=== PATIENT | male | born 1980 | race African-American/Black ===

== ENCOUNTER 2016-03-25 09:38 | Emergency (ER) | payer BC ==
[2016-03-25] MEDS ORDERED: Ketorolac INJ* 60 MG/2 ML VIAL IM ONE (11:24)
[2016-03-25 11:37] VITALS: BP 154/82
--- NOTE | 2016-03-25 14:31 | UC ---
Ariel Edwards Billy, scribed for Amanda Nava DO on 03/25/16 at 1107 . Lower Extremity/Ankle HPI - HPI Summary HPI Summary: Patient is a 35 year-old male coming [place] [facility] [place] LLE cramping for several weeks. He describes an ache, pain severity 9/10. He states that it is worse with bending, ambulating. Pain is improved with ibuprofen. He states that the pain has progressively gotten worse and ibuprofen no longer helps. The pain begins in the inner thigh and radiates through the back of his leg, through his calf, to his ankle. Patient states that he has mild lower back pain. He states that there is weakness in the LLE as well as tingling behind the knee. He denies any loss of bowel/bladder control. He denies any other complaints at this time. He reports occasional heavy lifting at work. - History of Current Complaint Chief Complaint: UCLowerExtremity Stated Complaint: LEG COMPLAINT Time Seen by Provider: 03/25/16 10:49 Hx Obtained From: Patient Onset/Duration: Gradual Onset, Lasting Weeks, Still Present Severity Initially: Moderate Severity Currently: Moderate Pain Intensity: 9 Pain Scale Used: 0-10 Numeric Aggravating Factor(s): Ambulation, Other - bending, moving Alleviating Factor(s): Other - Ibuprofen used to improve his pain, but not anymore. Able to Bear Weight: Yes - Allergies/Home Medications Allergies/Adverse Reactions: Allergies Allergy/AdvReac Type Severity Reaction Status Date / Time No Known Allergies Allergy Verified 12/25/15 12:15 PMH/Surg Hx/FS Hx/Imm Hx Endocrine History Of: Denies: Diabetes, Thyroid Disease, Hyperthyroidism, Hypothyroidism, Dyslipidemia Cardiovascular History Of: Reports: Hypertension Denies: Cardiac Disorders, Pacemaker/ICD, Myocardial Infarction, Congestive Heart Failure, Atrial Fibrillation, Deep Vein Thrombosis, Bleeding Disorders Respiratory History Of: Reports: Asthma, Bronchitis Denies: COPD GI/ History Of: Reports: Gastroesophageal Reflux Denies: Ulcer, Gastrointestinal Bleed, Gall Bladder Disease, Kidney Stones, Diverticulitis, Renal Disease, Urosepsis Neurological History Of: Denies: TIA, CVA, Dementia, Seizures, Migraine Psychological History Of: Reports: Depression Denies: Anxiety, Bipolar Disorder, Schizophrenia, Post Traumatic Stress Disorder Cancer History Of: Denies: Lung Cancer, Colorectal Cancer, Breast Cancer, Prostate Cancer, Cervical Cancer Other History Of: Negative For: HIV, Hepatitis B, Hepatitis C - Surgical History Surgical History: None - Family History Known Family History: Positive: Cardiac Disease, Hypertension, Diabetes, Respiratory Disease - COPD, Other - CVA - Social History Occupation: Employed Full-time - food industry Lives: With Family Alcohol Use: Occasionally Substance Use Type: None Smoking Status (MU): Light Every Day Tobacco Smoker Type: Cigarettes Amount Used/How Often: 1/2 PACK EVERY COUPLE DAYS Length of Time of Smoking/Using Tobacco: since age 16 Have You Smoked in the Last Year: Yes Household Exposure Type: Cigarettes - Immunization History Most Recent Influenza Vaccination: Review of Systems Constitutional: Negative Skin: Negative Eyes: Negative ENT: Negative Respiratory: Negative Cardiovascular: Negative Gastrointestinal: Negative Genitourinary: Other - pt repost some difficulty starting stream for several months now. Motor: Negative Neurovascular: Negative Musculoskeletal: Other: - LLE cramping, back pain Neurological: Weakness, Paresthesia - Behind left knee., Other - no bowel or bladder changes, no saddle anesthesia Psychological: Negative All Other Systems Reviewed And Are Negative: Yes Physical Exam Triage Information Reviewed: Yes Appearance: Well-Appearing, No Pain Distress, Well-Nourished Vital Signs: Initial Vital Signs Temp 97.9 F 03/25/16 10:37 Pulse 80 03/25/16 10:37 Resp 16 03/25/16 10:37 BP 143/104 03/25/16 10:37 Pulse Ox 79 03/25/16 10:37 Vital Signs Reviewed: Yes Eyes: Positive: Conjunctiva Clear. Negative: Discharge ENT: Positive: Hearing grossly normal. Negative: Muffled/hoarse voice Neck: Positive: Supple, Nontender Respiratory: Positive: Lungs clear, Normal breath sounds, No respiratory distress, No accessory muscle use Cardiovascular: Positive: RRR, No Murmur Abdomen Description: Positive: Nontender, Soft. Negative: Distended, Guarding Musculoskeletal: Positive: No Edema, Other: - ROM restricted due to pain. Left side bending, right rotation, and extention: all of those motions aggravate pain in the left leg. No edema or calf tenderness. Some weakness due to pain in the LLE. Tender Psoas/Piriformis muscles. Positive straight leg raise. Neurological: Positive: Alert, Muscle Tone Normal, Other: - Sensation and reflexes intact and symmetrical bilaterally. Psychological: Positive: Age Appropriate Behavior Skin Exam: Normal Lower Extremity Course/Dx - Differential Dx/Diagnosis Differential Diagnosis/HQI/PQRI: Sciatica, Sprain, Strain Provider Diagnoses: sciatica Discharge - Discharge Plan Condition: Stable Disposition: HOME Prescriptions: HYDROcodone/ACETAMIN 5-325 MG* [[place] 5-325 TAB*] 1 tab PO Q6H PRN #14 tab MDD 4 TABS PRN Reason: Pain predniSONE TAB* [Deltasone TAB*] 40 mg PO DAILY #10 tab Patient Education Materials: Sciatica (ED) Forms: *Work Release Referrals: Durga Terry MD [Medical Doctor] - Additional Instructions: PHYSICAL THERAPY REFERRAL: You have been prescribed physical therapy. Treatments may include stretching, exercise, application of heat or cold, and other modalities. After an injury, PT can reduce swelling and pain. In recovery, PT is used to restore mobility and strength. Your specific treatment goals are: Reduction of Swelling (EGS, US, ice as needed) __x___ Pain Reduction (EGS, US, ice as needed) TENS Pack Fitting and Instruction Wound Hydrotherapy __x___ Preservation of Mobility Gnosticism of Mobility Strength Gnosticism __x___ Work or Sports Hardening This instruction sheet also serves as your PHYSICAL THERAPY REFERRAL! Please take it with you to the therapist, so he/she will be aware of your diagnosis and treatment plan. You may see the physical therapist of your choice for these treatments, but may wish to check with your insurance to be sure the provider you select is covered. It's important to see the doctor to whom you have been referred for follow up. YOU WOULD LIKELY BENEFIT FROM OSTEOPATHIC TREATMENT. WE RECOMMEND THAT YOU FIND AN OSTEOPATHIC PHYSICIAN IN YOUR AREA WHO FOCUSES EXCLUSIVELY ON OSTEOPATHIC MANIPULATIVE MEDICINE WITH EXPERTISE IN MYOFACIAL, LYMPHATIC, VISCERAL AND INTEROSSEOUS WORK The documentation as recorded by the Ariel allison Billy accurately reflects the service I personally performed and the decisions made by me, Amanda Nava DO.
== END 2016-03-25 12:16 | disposition home or self-care (01) ==
LOC: UCEAST 09:38
DX: M54.42 Lumbago with sciatica, left side (principal); F17.210 Nicotine dependence, cigarettes, uncomplicated
CPT/HCPCS: 96372; 99212; G0463; J1885

== ENCOUNTER 2016-05-13 09:51 | Emergency (ER) | payer BC ==
[2016-05-13] MEDS ORDERED: Ketorolac INJ* 60 MG/2 ML VIAL IM ONE (11:09)
[2016-05-13 11:55] VITALS: BP 150/109
--- NOTE | 2016-05-13 11:57 | RAD ---
INDICATION: Right shoulder pain COMPARISON: None TECHNIQUE: Routine frontal and Y views were obtained. FINDINGS: There is minor AC joint osteoarthritis. The glenohumeral joint is intact. The soft tissues are normal. IMPRESSION: MINOR AC JOINT OSTEOARTHRITIS
--- NOTE | 2016-05-13 11:58 | RAD ---
Indication: 2 days RIGHT shoulder/chest pain and limited mobility of the RIGHT arm. Comparison: None. Technique: AP, open-mouth odontoid, lateral, and oblique views cervical spine. Report: Slight RIGHT convex curve. Negative for facet subluxation at any level. Negative for fracture. Preserved disc spaces. The oblique views are negative for osseous foraminal stenosis. Unremarkable prevertebral soft tissue contours. IMPRESSION: Negative exam.
--- NOTE | 2016-05-13 12:57 | UC ---
Shoulder Pain HPI - HPI Summary HPI Summary: TWO DAYS OF RIGHT SHOULDER PAIN WITHOUT KNOWN INJURY. WORKS A COOK. RIGHT NECK ALSO FEELS STIFF - History of Current Complaint Chief Complaint: UCUpperExtremity Stated Complaint: ARM/SHOULDER PAIN Time Seen by Provider: 05/13/16 10:56 Hx Obtained From: Patient Onset/Duration: Gradual Onset, Lasting Days, Still Present, Worse Since - TODAY Timing: Days Severity Initially: Mild Severity Currently: Moderate Location Of Pain: Is Discrete @ - RIGHT SHOULDER BLADE AND RIGHT NECK Pain Intensity: 0 Pain Scale Used: 0-10 Numeric Character: Spasmodic Aggravating Factor(s): Movement, Lifting, Extension, External Rotation Associated Signs And Symptoms: Positive: Negative Related History: Dominant Hand Left - Risk Factors Non-Orthopedic Risk Factor: Negative DVT Risk Factors: Negative Septic Arthritis Risk Factor: Negative - Allergies/Home Medications Allergies/Adverse Reactions: Allergies Allergy/AdvReac Type Severity Reaction Status Date / Time No Known Allergies Allergy Verified 12/25/15 12:15 PMH/Surg Hx/FS Hx/Imm Hx Previously Healthy: Yes Endocrine History Of: Denies: Diabetes, Thyroid Disease, Hyperthyroidism, Hypothyroidism, Dyslipidemia Cardiovascular History Of: Reports: Hypertension Denies: Cardiac Disorders, Pacemaker/ICD, Myocardial Infarction, Congestive Heart Failure, Atrial Fibrillation, Deep Vein Thrombosis, Bleeding Disorders Respiratory History Of: Reports: Asthma, Bronchitis Denies: COPD GI/ History Of: Reports: Gastroesophageal Reflux Denies: Ulcer, Gastrointestinal Bleed, Gall Bladder Disease, Kidney Stones, Diverticulitis, Renal Disease, Urosepsis Neurological History Of: Denies: TIA, CVA, Dementia, Seizures, Migraine Psychological History Of: Reports: Depression Denies: Anxiety, Bipolar Disorder, Schizophrenia, Post Traumatic Stress Disorder Cancer History Of: Denies: Lung Cancer, Colorectal Cancer, Breast Cancer, Prostate Cancer, Cervical Cancer Other History Of: Negative For: HIV, Hepatitis B, Hepatitis C - Surgical History Surgical History: None - Family History Known Family History: Positive: Cardiac Disease, Hypertension, Diabetes, Respiratory Disease - COPD, Other - CVA - Social History Occupation: Employed Full-time Lives: With Family Alcohol Use: Occasionally Substance Use Type: None Smoking Status (MU): Light Every Day Tobacco Smoker Type: Cigarettes Amount Used/How Often: 1/2 PACK EVERY COUPLE DAYS Length of Time of Smoking/Using Tobacco: since age 16 Have You Smoked in the Last Year: Yes Household Exposure Type: Cigarettes Cessation Counseling: Patient Advised to Stop - Immunization History Most Recent Influenza Vaccination: 2015/2016 Review of Systems Constitutional: Negative Skin: Negative Eyes: Negative ENT: Negative Respiratory: Negative Cardiovascular: Negative Gastrointestinal: Negative Genitourinary: Negative Motor: Negative Neurovascular: Negative Musculoskeletal: Arthralgia, Myalgia Neurological: Negative Psychological: Negative All Other Systems Reviewed And Are Negative: Yes Physical Exam Triage Information Reviewed: Yes Appearance: Well-Appearing, Well-Nourished, Pain Distress - MILD Vital Signs: Initial Vital Signs Temp 98.1 F 05/13/16 10:44 Pulse 76 05/13/16 10:44 Resp 18 05/13/16 10:44 BP 150/101 05/13/16 10:44 Pulse Ox 100 05/13/16 10:44 Vital Signs Reviewed: Yes Eye Exam: Normal ENT Exam: Normal ENT: Positive: Normal ENT inspection, Hearing grossly normal, Pharynx normal, TMs normal Dental Exam: Normal Neck exam: Normal Neck: Positive: Supple, Nontender Respiratory Exam: Normal Respiratory: Positive: Chest non-tender, Lungs clear, Normal breath sounds, No respiratory distress, No accessory muscle use Cardiovascular Exam: Normal Cardiovascular: Positive: RRR, No Murmur, Pulses Normal, Brisk Capillary Refill Abdominal Exam: Normal Musculoskeletal: Positive: ROM Intact, Strength Limited @ - RIGHT SHOULDER Neurological Exam: Normal Psychological Exam: Normal Skin Exam: Normal Shoulder Course/Dx - Differential Dx/Diagnosis Differential Diagnosis/HQI/PQRI: Sprain, Strain Provider Diagnoses: RIGHT AC JOINT ARTHRITIS. HYPERTENSION (WILL FOLLOW UP WITH DOCTOR THIS WEEK). TORTICOLLIS Discharge - Discharge Plan Condition: Stable Disposition: HOME Prescriptions: Metaxalone TAB* [Skelaxin TAB*] 800 mg PO TID #15 tab Patient Education Materials: Osteoarthritis (ED), Muscle Spasm (ED), Shoulder Pain (ED) Forms: *Work Release Referrals: [facility] [Outside] Durga Terry MD [Primary Care Provider] - Anahi Huff MD [Medical Doctor] -
== END 2016-05-13 12:21 | disposition home or self-care (01) ==
LOC: UCEAST 09:51
DX: M19.011 Primary osteoarthritis, right shoulder (principal); I10 Essential (primary) hypertension; J45.909 Unspecified asthma, uncomplicated; K21.9 Gastro-esophageal reflux disease without esophagitis; F32.9 Major depressive disorder, single episode, unspecified; F17.210 Nicotine dependence, cigarettes, uncomplicated; M43.6 Torticollis
CPT/HCPCS: 72050; 96372; 99212; G0463; J1885

== ENCOUNTER 2016-08-05 22:02 | Emergency (ER) | payer BC ==
[2016-08-05] MEDS ORDERED: Aspirin Low Dose CHEW TAB* 81 MG PO ONE (22:54)
[2016-08-05 23:09] LABS: Hematocrit 43 % (42-52); Hemoglobin 14.1 g/dl (14.0-18.0); Mean Corpuscular HGB Conc 33 g/dl (31-36); Mean Corpuscular Hemoglobin 29 pg (27-31); Mean Corpuscular Volume 88 fL (80-94); Mean Platelet Volume 9 um3 (7.4-10.4); Red Blood Count 4.92 10^6/ul (4.0-5.4); Red Cell Distribution Width 15 % (10.5-15)
[2016-08-05 23:21] LABS: Albumin 3.8 g/dL (3.2-5.2); BUN/Creatinine Ratio 13.1 (8-20); Calcium 8.9 mg/dL (8.6-10.3); EGFR African American 131.5 (>60); EGFR Non-African American 102.3 (>60); Globulin 3.2 g/dL (2-4); Potassium 3.4 mmol/L (3.5-5.0); Total Bilirubin 0.4 mg/dL (0.2-1.0)
[2016-08-05 23:23] LABS: Troponin I 0.03 ng/mL (<0.04)
--- NOTE | 2016-08-06 00:21 | ED ---
Tara Edwards Salem, scribed for Sunil Valladares MD on 08/05/16 at 2227 . HPI Chest Pain - HPI Summary HPI Summary: Patient is a 36 y/o M who presents to the ED with intermittent left-sided CP that radiates down his left arm for the past hour. He states that these sx have been re-occurring over the past few years and he is scheduled to have a follow up with Dr. Marmolejo in August 2016. He also reports SOB. Pt states that stress aggravates pain. Pt received [facility] BILINGUAL SPEECH THERAPIST. - History of Current Complaint Chief Complaint: EDChestPainROMI Time Seen by Provider: 08/05/16 22:16 Hx Obtained From: Patient Onset/Duration: Started Hours Ago, Atraumatic, Still Present Timing: Intermittent Initial Severity: Moderate Current Severity: Moderate Pain Intensity: 9 Pain Scale Used: 0-10 Numeric Chest Pain Location: Left Anterior Chest Pain Radiates: Yes Chest Pain Radiates To:: Arm - Lt. Aggravating Factor(s): Other: - Stress. Alleviating Factor(s): Nothing Associated Signs and Symptoms: Positive: Chest Pain, Shortness of Breath - Allergy/Home Medications Allergies/Adverse Reactions: Allergies Allergy/AdvReac Type Severity Reaction Status Date / Time No Known Allergies Allergy Verified 12/25/15 12:15 PMH/Surg Hx/FS Hx/Imm Hx Endocrine/Hematology History: Denies: Hx Diabetes, Hx Thyroid Disease Cardiovascular History: Reports: Hx Hypertension Denies: Hx Congestive Heart Failure, Hx Deep Vein Thrombosis, Hx Myocardial Infarction, Hx Pacemaker/ICD Respiratory History: Reports: Hx Asthma Denies: Hx Chronic Obstructive Pulmonary Disease (COPD), Hx Lung Cancer GI History: Denies: Hx Gall Bladder Disease, Hx Gastrointestinal Bleed, Hx Ulcer, Hx Urosepsis History: Denies: Hx Kidney Stones, Hx Renal Disease Sensory History: Denies: Hx Hearing Aid Neurological History: Denies: Hx Dementia, Hx Migraine, Hx Seizures, Hx Transient Ischemic Attacks (TIA) Psychiatric History: Reports: Hx Depression Denies: Hx Anxiety, Hx Panic Disorder, Hx Schizophrenia, Hx Bipolar Disorder Infectious Disease History: No Infectious Disease History: Denies: Hx Hepatitis, Hx Human Immunodeficiency Virus (HIV), Hx of Known/ Suspected MRSA, History Other Infectious Disease, Traveled Outside the [place] in Last 30 Days - Family History Known Family History: Positive: Cardiac Disease, Hypertension, Diabetes, Respiratory Disease - COPD, Other - CVA - Social History Alcohol Use: Occasionally Hx Substance Use: No Substance Use Type: Reports: None Hx Tobacco Use: Yes Smoking Status (MU): Light Every Day Tobacco Smoker Type: Cigarettes Amount Used/How Often: 1/2 PACK EVERY COUPLE DAYS Length of Time of Smoking/Using Tobacco: since age 16 Have You Smoked in the Last Year: Yes Review of Systems Negative: Fever Positive: Chest Pain Positive: Shortness Of Breath All Other Systems Reviewed And Are Negative: Yes Physical Exam Triage Information Reviewed: Yes Vital Signs On Initial Exam: Initial Vitals Temp Pulse Resp BP Pulse Ox 98.0 F 64 16 153/102 97 08/05/16 22:10 08/05/16 22:10 08/05/16 22:10 08/05/16 22:10 08/05/16 22:10 Vital Signs Reviewed: Yes Appearance: Positive: Well-Appearing, No Pain Distress, Obese Skin: Positive: Warm, Skin Color Reflects Adequate Perfusion, Dry Head/Face: Positive: Normal Head/Face Inspection Eyes: Positive: Normal Neck: Positive: Supple, Nontender Respiratory/Lung Sounds: Positive: Clear to Auscultation, Breath Sounds Present Cardiovascular: Positive: RRR Abdomen Description: Positive: Nontender, Soft Bowel Sounds: Positive: Present Musculoskeletal: Positive: Normal Neurological: Positive: Normal Psychiatric: Positive: Normal, Affect/Mood Appropriate Diagnostics - Vital Signs Vital Signs Temp Pulse Resp BP Pulse Ox 08/05/16 22:10 98.0 F 64 16 153/102 97 - Laboratory Lab Results: Lab Results 08/05/16 08/05/16 08/05/16 Range/Units 22:30 22:30 22:30 WBC 6.0 (3.5-10.8) 10^3/ul RBC 4.92 (4.0-5.4) 10^6/ul Hgb 14.1 (14.0-18.0) g/dl Hct 43 (42-52) % MCV 88 (80-94) fL MCH 29 (27-31) pg MCHC 33 (31-36) g/dl RDW 15 (10.5-15) % Plt Count 220 (150-450) 10^3/ul MPV 9 (7.4-10.4) um3 Neut % (Auto) 37.3 L (38-83) % Lymph % (Auto) 45.7 (25-47) % [place] % (Auto) 11.8 H (1-9) % Eos % (Auto) 4.5 (0-6) % Baso % (Auto) 0.7 (0-2) % Absolute Neuts (auto) 2.2 (1.5-7.7) 10^3/ul Absolute Lymphs (auto) 2.7 (1.0-4.8) 10^3/ul Absolute Monos (auto) 0.7 (0-0.8) 10^3/ul Absolute Eos (auto) 0.3 (0-0.6) 10^3/ul Absolute Basos (auto) 0 (0-0.2) 10^3/ul Absolute Nucleated RBC 0.02 10^3/ul Nucleated RBC % 0.3 Sodium 137 (133-145) mmol/L Potassium 3.4 L (3.5-5.0) mmol/L Chloride 106 (101-111) mmol/L Carbon Dioxide 24 (22-32) mmol/L Anion Gap 7 (2-11) mmol/L BUN 11 (6-24) mg/dL Creatinine 0.84 (0.67-1.17) mg/dL Est GFR ( Amer) 131.5 (>60) Est GFR (Non-Af Amer) 102.3 (>60) BUN/Creatinine Ratio 13.1 (8-20) Glucose 103 H (70-100) mg/dL Lactic Acid 1.4 (0.5-2.0) mmol/L Calcium 8.9 (8.6-10.3) mg/dL Total Bilirubin 0.40 (0.2-1.0) mg/dL AST 31 (13-39) U/L ALT 65 H (7-52) U/L Alkaline Phosphatase 80 (34-104) U/L Troponin I 0.03 (<0.04) ng/mL Total Protein 7.0 (6.4-8.9) g/dL Albumin 3.8 (3.2-5.2) g/dL Globulin 3.2 (2-4) g/dL Albumin/Globulin Ratio 1.2 (1-3) Result Diagrams: 08/05/16 22:30 08/05/16 22:30 Diagnostic Studies Comment: Trop 1: 0.03 Lab Statement: Any lab studies that have been ordered have been reviewed, and results considered in the medical decision making process. - Radiology CXR Radiology Interpretation Completed By: ED Physician - Normal. - EKG 2210 EKG Interpretation: NSR @ 72 bpm. Inferior changes unchanged from 01/16/16. Chest Pain Course/Dx - Course Course Of Treatment: Mr. Mancera presented with CP that he has had many times before and he is scheduled to see Dr. Marmolejo for in follow up. His W/U here was negative including two troponins (the second is still pending but I anticipate it being normal). He will be D/C'd to F/U with Dr. Marmolejo. - Diagnoses Provider Diagnoses: Chest pain Discharge - Discharge Plan Condition: Stable Disposition: OTHER Discharge Disposition Comment: Sign out to Dr. Hyatt. Pending Troponin. Patient Education Materials: Chest Pain (ED) Referrals: Durga Terry MD [Primary Care Provider] - Additional Instructions: Please follow up your primary care provider. The documentation as recorded by the Tara allison Salem accurately reflects the service I personally performed and the decisions made by , Sunil Valladares MD.
[2016-08-06 03:11] VITALS: BP 139/81
--- NOTE | 2016-08-06 08:18 | RAD ---
Indication: Chest pain. Asthma/bronchitis. Comparison: January 16, 2016 Technique: Upright AP 2306 hours Report: Clear lungs and pleural spaces. Negative for pneumothorax. The heart, pulmonary vasculature, and mediastinal contours are unremarkable. Unremarkable osseous structures and soft tissue contours. IMPRESSION: No evidence for acute intrathoracic disease.
== END 2016-08-06 03:10 ==
LOC: ED 22:02
DX: R07.89 Other chest pain (principal); M79.602 Pain in left arm; R06.02 Shortness of breath; I10 Essential (primary) hypertension; J45.909 Unspecified asthma, uncomplicated; F32.9 Major depressive disorder, single episode, unspecified; E66.9 Obesity, unspecified; F17.210 Nicotine dependence, cigarettes, uncomplicated
CPT/HCPCS: 36415; 71010; 80053; 83605; 84484; 85025; 93005; 99283

== ENCOUNTER 2017-03-25 08:42 | Emergency (ER) | payer BC ==
[2017-03-25 08:56] VITALS: BP 157/103
[2017-03-25] MEDS ORDERED: Ibuprofen TAB* 600 MG PO ONE (09:52)
--- NOTE | 2017-03-25 09:52 | UC ---
FLU HPI - HPI Summary HPI Summary: 2-3 DAYS OF FATIGUE, FEVER, CHILLS, N/V, LOOSE STOOLS AND PRODUCTIVE COUGH. ALSO C/O INTERMITTENT SHARP PAINS IN THE CHEST AND TINGLING IN THE HANDS. PT STATES THIS IS THE SAME HIS PREVIOUS CHEST PAIN THAT HAS BEEN WORKED UP SEVERAL TIMES. PT DECLINES EKG AND TRANSFER FOR CARDIAC EVAL. - History of Current Complaint Stated Complaint: CHILLS DIARRHEA FLU SYMPTOMS Time Seen by Provider: 03/25/17 08:52 Hx Obtained From: Patient Onset/Duration: Gradual Onset, Lasting Days, Still Present Severity Currently: Moderate Severity Initially: Moderate Pain Intensity: 8 Pain Scale Used: 0-10 Numeric Associated Signs & Symptoms: Positive: Fever, Myalgia, Cough, Nasal Congestion, Vomiting - Allergy/Home Medications Allergies/Adverse Reactions: Allergies Allergy/AdvReac Type Severity Reaction Status Date / Time No Known Allergies Allergy Verified 03/25/17 08:56 PMH/Surg Hx/FS Hx/Imm Hx Cardiovascular History: Hypertension Respiratory History: Asthma Other History Of: Negative For: HIV, Hepatitis B, Hepatitis C - Surgical History Surgical History: None - Family History Known Family History: Positive: Cardiac Disease, Hypertension, Diabetes, Respiratory Disease - COPD, Other - CVA - Social History Alcohol Use: Occasionally Substance Use Type: None Smoking Status (MU): Light Every Day Tobacco Smoker Type: Cigarettes Amount Used/How Often: 1/2 PACK EVERY COUPLE DAYS Length of Time of Smoking/Using Tobacco: since age 16 Have You Smoked in the Last Year: Yes Household Exposure Type: Cigarettes - Immunization History Most Recent Influenza Vaccination: 2016/2016 Most Recent Tetanus Shot: unknown Review of Systems Constitutional: Fever, Chills, Fatigue ENT: Sore Throat, Nasal Discharge Respiratory: Cough Cardiovascular: Chest Pain Gastrointestinal: Vomiting, Nausea Musculoskeletal: Myalgia All Other Systems Reviewed And Are Negative: Yes Physical Exam Triage Information Reviewed: Yes Appearance: No Pain Distress, Well-Nourished, Ill-Appearing - MILD Vital Signs: Initial Vital Signs Temp 100 F 03/25/17 08:50 Pulse 78 03/25/17 08:50 Resp 20 03/25/17 08:50 BP 157/103 03/25/17 08:50 Pulse Ox 100 03/25/17 08:50 Eyes: Positive: Conjunctiva Clear ENT: Positive: Hearing grossly normal, Pharynx normal, TMs normal Neck: Positive: Supple, Nontender, No Lymphadenopathy Respiratory Exam: Normal Cardiovascular Exam: Normal Abdomen Description: Positive: Soft Musculoskeletal: Positive: No Edema Neurological: Positive: Alert Psychological: Positive: Age Appropriate Behavior Skin: Negative: rashes Diagnostics - Laboratory Diagnostic Studies Completed/Ordered: FLU SWAB NEGATIVE - Radiology CHEST XRAY Xray Interpretation: No Acute Changes - Elevated lung volumes suggest obstructive lung disease. No acute cardiopulmonary process evident. Radiology Interpretation Completed By: Radiologist Flu Course/Dx - Differential Dx/Diagnosis Provider Diagnoses: ACUTE VIRAL SYNDROME Discharge - Discharge Plan Condition: Stable Disposition: HOME Prescriptions: Ondansetron ODT TAB* [Zofran Odt TAB*] 4 mg PO Q6H PRN #20 tab.odt PRN Reason: Nausea/Vomiting Patient Education Materials: Viral Syndrome (ED) Forms: *Work Release Referrals: Bobbi Campos [facility] [Primary Care Provider] - If Needed Additional Instructions: FLU SWAB NEGATIVE. CHEST XRAY WITH NO ACUTE CHANGES. YOUR SYMPTOMS ARE LIKELY VIRALLY MEDIATED AND SHOULD RESOLVE ON THEIR OWN WITH TIME. REST, HYDRATE, OTC MEDS NEEDED. SEEK FOLLOW-UP IF YOU ARE NOT IMPROVING OVER THE NEXT 1-2 WEEKS. VIRAL SYNDROME: The physician has diagnosed a viral infection. Viruses not only cause "colds," but can cause many different symptoms including generalized aching, fever, headache, cough, diarrhea, nausea, vomiting, and fatigue. The treatment, for the most part, is simply relief of symptoms. This means that antibiotics are usually not given. Rest, fluids, pain medications and, occasionally, medication for the specific symptoms that are most bothersome will be prescribed. Go to the ED if you develop any new or unusual symptoms such as severe headache, stiff neck, high fever, chest pain, productive cough, or shortness of breath. You should be rechecked if you don't see marked improvement within 10 to 14 days. YOUR BLOOD PRESSURE WAS ELEVATED TODAY (157/103). THIS MAY BE DUE TO YOUR ACUTE CONDITION. MONITOR AND FOLLOW-UP WITH YOUR PCP WITHIN 4 WEEKS IF IT HAS NOT RETURNED TO NORMAL. GO TO ER WITHOUT FAIL IF YOU DEVELOP WORSENING CHEST PAIN, SHORTNESS OF BREATH, SWEATS, DIZZINESS OR ANY OTHER CONCERNING SYMPTOMS.
--- NOTE | 2017-03-25 10:21 | RAD ---
INDICATION: Cough and fever. History of asthma. COMPARISON: August 05, 2016 TECHNIQUE: Dual energy PA and routine lateral views of the chest were obtained. REPORT: Mildly elevated lung volumes with increased AP thoracic diameter. No focal pulmonary lesion, compelling alveolar consolidation, pleural effusion, pneumothorax. The heart, pulmonary vasculature, and mediastinal contours are unremarkable. IMPRESSION: Elevated lung volumes suggest obstructive lung disease. No acute cardiopulmonary process evident.
== END 2017-03-25 10:59 | disposition home or self-care (01) ==
LOC: UCEAST 08:42
DX: B34.9 Viral infection, unspecified (principal); R50.9 Fever, unspecified; R05 Cough; I10 Essential (primary) hypertension; J45.909 Unspecified asthma, uncomplicated; F17.210 Nicotine dependence, cigarettes, uncomplicated
CPT/HCPCS: 71046; 87502; 99212; A9270-GY; G0463

== ENCOUNTER 2018-02-24 07:24 | Emergency (ER) | payer SELFPAY ==
--- NOTE | 2018-02-24 07:56 | ED ---
Upper Extremity Pain - HPI Summary HPI Summary: A 37 y/o male presents to [facility] with a chief complaint of right arm and shoulder pain since he slipped and fell on black ice at 06:15 02/24/18. In the room it is unclear what his causing him the most pain but he c/o pain in his right shoulder, wrist and elbow. Per triage note, he "states he did hit his head , denies LOC". He rates his pain as a 10/10. - History of Current Complaint Chief Complaint: EDStobildDickharshaarpan Stated Complaint: RIGHT SHOULDER INJURY Time Seen by Provider: 02/24/18 07:45 Hx Obtained From: Patient Mechanism Of Injury: Fall From A Standing Position Onset/Duration: Started Hours Ago, Still Present Timing: Constant, Lasting Hours Severity Initially: Severe Severity Currently: Severe Pain Location: Shoulder, Arm, Forearm Character: Unable to Describe Aggravating Factor(s): Nothing Alleviating Factor(s): Nothing Associated Signs & Symptoms: Positive: Negative - LOC. Negative: Fever - Allergies/Home Medications Allergies/Adverse Reactions: Allergies Allergy/AdvReac Type Severity Reaction Status Date / Time No Known Allergies Allergy Verified 03/25/17 08:56 PMH/Surg Hx/FS Hx/Imm Hx Endocrine/Hematology History: Denies: Hx Diabetes, Hx Thyroid Disease Cardiovascular History: Reports: Hx Hypertension Denies: Hx Congestive Heart Failure, Hx Deep Vein Thrombosis, Hx Myocardial Infarction, Hx Pacemaker/ICD Respiratory History: Reports: Hx Asthma Denies: Hx Chronic Obstructive Pulmonary Disease (COPD), Hx Lung Cancer GI History: Denies: Hx Gall Bladder Disease, Hx Gastrointestinal Bleed, Hx Ulcer, Hx Urosepsis History: Denies: Hx Kidney Stones, Hx Renal Disease Sensory History: Denies: Hx Hearing Aid Neurological History: Denies: Hx Dementia, Hx Migraine, Hx Seizures, Hx Transient Ischemic Attacks (TIA) Psychiatric History: Reports: Hx Depression Denies: Hx Anxiety, Hx Panic Disorder, Hx Schizophrenia, Hx Bipolar Disorder Infectious Disease History: No Infectious Disease History: Denies: Hx Hepatitis, Hx Human Immunodeficiency Virus (HIV), Hx of Known/ Suspected MRSA, History Other Infectious Disease, Traveled Outside the [place] in Last 30 Days - Family History Known Family History: Positive: Cardiac Disease, Hypertension, Diabetes, Respiratory Disease - COPD, Other - CVA - Social History Alcohol Use: Occasionally Hx Substance Use: No Substance Use Type: Reports: None Hx Tobacco Use: Yes Smoking Status (MU): Light Every Day Tobacco Smoker Type: Cigarettes Amount Used/How Often: 1/2 PACK EVERY COUPLE DAYS Length of Time of Smoking/Using Tobacco: since age 16 Have You Smoked in the Last Year: Yes Review of Systems Negative: Fever Positive: Arthralgia - right shoulder pain, Myalgia - right arm, elbow, wrist pain Negative: Syncope All Other Systems Reviewed And Are Negative: Yes Physical Exam - Summary Physical Exam Summary: Appearance: The patient is well-nourished in no acute distress and in no acute pain. Skin: The skin is warm and dry and skin color reflects adequate perfusion. HEENT: The head is normocephalic and atraumatic. The pupils are equal and reactive. The conjunctivae are clear and without drainage. Nares are patent and without drainage. Mouth reveals moist mucous membranes and the throat is without erythema and exudate. The external ears are intact. The ear canals are patent and without drainage. The tympanic membranes are intact. Neck: The neck is supple with full range of motion and non-tender. There are no carotid bruits. There is no neck vein distension. Respiratory: Chest is non-tender. Lungs are clear to auscultation and breath sounds are symmetrical and equal. Cardiovascular: Heart is regular rate and rhythm. There is no murmur or rub auscultated. There is no peripheral edema and pulses are symmetrical and equal. Abdomen: The abdomen is soft and non-tender. There are normal bowel sounds heard in all four quadrants and there is no organomegaly palpated. Musculoskeletal: There is no back tenderness noted. Tender over right rotator cuff area, tender to ROM. There is good capillary refill. There is no peripheral edema or calf tenderness elicited. Neurological: Patient is alert and oriented to person, place and time. The patient has symmetrical motor strength in all four extremities. Cranial nerves are grossly intact. Deep tendon reflexes are symmetrical and equal in all four extremities. Psychiatric: The patient has an appropriate affect and does not exhibit any anxiety or depression. Triage Information Reviewed: Yes Vital Signs On Initial Exam: Initial Vitals Temp Pulse Resp BP Pulse Ox 99.1 F 84 18 169/108 100 02/24/18 07:26 02/24/18 07:26 02/24/18 07:26 02/24/18 07:02/24/18 07:26 Vital Signs Reviewed: Yes Diagnostics - Vital Signs Vital Signs Temp Pulse Resp BP Pulse Ox 02/24/18 07:26 99.1 F 84 18 169/108 100 - Laboratory Lab Statement: Any lab studies that have been ordered have been reviewed, and results considered in the medical decision making process. - Radiology wrist x-ray Radiology Interpretation Completed By: Radiologist Summary of Radiographic Findings: No radiographic evidence for RIGHT wrist fracture. ED provider has reviewed this imaging report. shoulder x-ray Radiology Interpretation Completed By: Radiologist Summary of Radiographic Findings: Negative for RIGHT shoulder fracture or dislocation. Osteoarthritis. Large inferior acromial bone spur. ED provider has reviewed this imaging report. elbow x-ray Radiology Interpretation Completed By: Radiologist Summary of Radiographic Findings: NO EVIDENCE FOR FRACTURE. ED provider has reviewed this imaging report. Re-Evaluation - Re-Evaluation First Eval Re-Evaluation Time: 09:14 Change: Improved Comment: Reports some relief from Percocet. The patient is ready for discharge. Course/Dx - Course Course Of Treatment: Mr. Mancera presented in severe pain after slipping on the ice and falling onto his right shoulder. His primary complaint was in the shoulder but he also complained of pain in his right arm elbow and wrist. He was tender and cried out anywhere that I touched him on the right upper extremity. I was unable to distract him and get a good exam. X-rays were negative of his shoulder elbow and wrist. After pain medication he was primarily tender over the right rotator cuff area and he was placed in a shoulder immobilizer and recommended ibuprofen and follow-up with orthopedics. - Diagnoses Provider Diagnoses: Shoulder injury Discharge - Sign-Out/Discharge Documenting (check all that apply): Patient Departure - DC - Discharge Plan Condition: Stable Disposition: HOME Prescriptions: traMADol TAB* [Ultram*] 50 mg PO Q6HR PRN #20 tab MDD 4 PRN Reason: Pain Forms: *Work Release Referrals: Durga Terry MD [Primary Care Provider] - (2-3 days) Anahi Huff MD [Medical Doctor] - () Additional Instructions: Follow up with Orthopedics Return to the ED for any changing or worsening symptoms. - Billing Disposition and Condition Condition: STABLE Disposition: Home - Attestation Statements Document Initiated by Scribe: Yes Documenting Scribe: Sha Francois Provider For Whom Scribe is Documenting (Include Credential): Sunil Valladares MD Scribe Attestation: I, Sha Francois, scribed for Sunil Valladares MD on 02/24/18 at 1830. Scribe Documentation Reviewed: Yes Provider Attestation: The documentation as recorded by the scribe, Sha Francois accurately reflects the service I personally performed and the decisions made by me, Sunil Valladares MD Status of Scribe Document: Viewed
[2018-02-24] MEDS ORDERED: oxyCODONE/Acetamin 5/325 MG* TAB PO ONE (08:01)
[2018-02-24 09:33] VITALS: BP 183/121
== END 2018-02-24 09:32 | disposition home or self-care (01) ==
LOC: ED 07:24
DX: S49.91XA Unspecified injury of right shoulder and upper arm, initial encounter (principal); W01.0XXA Fall on same level from slipping, tripping and stumbling without subsequent striking against object, initial encounter; Y92.9 Unspecified place or not applicable
CPT/HCPCS: 99282; A9270-GY

== ENCOUNTER 2018-04-27 10:21 | Day surgery (SDC) | payer BC ==
[~2018-04-27 10:21] MED LIST: Acetaminophen TAB* 325 MG PO ONE; Buffered Lidocaine 1% SYRIN* 1 ML/SYRINGE INTRADERM ONE; Dexamethasone IV* 4 MG/ML 1 ML (4 MG) IV SLOW PU ONE; Famotidine IV* 10 MG/ML 2 ML (20 mg) IV ONE; Gabapentin CAP(*) 300 MG PO ONE; Lactated Ringers 1000 ML Bag* 1,000 ML IV SCH; Midazolam* 1 MG/ML 2 ML VIAL (2 MG) ONE; Propofol* 10 MG/ML 20 ML BTL ONE; Rocuronium* 10 MG/ML VIAL ONE; celeCOXIB CAP* 200 MG PO ONE; fentaNYL* 50 MCG/ML 2 ML VIAL (100 MCG VIAL) ONE
[2018-04-27] MEDS ORDERED: Dexamethasone IV* 4 MG/ML 1 ML (4 MG) ONE (10:35)
[2018-04-27] MEDS ORDERED: Gabapentin CAP(*) 300 MG ONE (10:35)
[2018-04-27] MEDS ORDERED: celeCOXIB CAP* 100 MG ONE (10:35)
[2018-04-27] MEDS ORDERED: Acetaminophen TAB* 325 MG ONE (10:35)
[2018-04-27] MEDS ORDERED: ceFAZolin 2 GM in NS PREMIX(*) 2 GM/100 ML BAG IVPB ONE (10:36)
[2018-04-27] MEDS ORDERED: Buffered Lidocaine 1% SYRIN* 1 ML/SYRINGE INTRADERM ONE (10:36)
[2018-04-27] MEDS ORDERED: Famotidine IV* 10 MG/ML 2 ML (20 mg) ONE (10:36)
[2018-04-27] MEDS ORDERED: hydrALAZINE IV* 20 MG/ML VIAL IV SLOW PU ONE (10:49)
[2018-04-27] MEDS ORDERED: hydrALAZINE IV* 20 MG/ML VIAL ONE (10:51)
[2018-04-27] MEDS ORDERED: Lidocaine 1%* 5 ML VIAL ONE (11:12)
[2018-04-27] MEDS ORDERED: ROPIVACAINE 5 MG/ML 30 ML BTL (0.5%) ONE (11:12)
[2018-04-27] MEDS ORDERED: Midazolam* 1 MG/ML 2 ML VIAL (2 MG) IV ONE (11:20)
[2018-04-27] MEDS ORDERED: Labetalol IV* 5 MG/ML 20 ML VIAL IV PUSH ONE (11:20)
[2018-04-27] MEDS ORDERED: Midazolam* 1 MG/ML 2 ML VIAL (2 MG) ONE (11:21)
[2018-04-27] MEDS ORDERED: Ropivacaine* 2 MG/ML 20 ML VIAL (0.2%) ONE (11:35)
[2018-04-27] MEDS ORDERED: HYDROcodone/ACETAMIN 5-325 MG* 1 TAB PO PRN (11:37)
[2018-04-27] MEDS ORDERED: DiMENhydriNATE IV* 50 MG/ML VIAL IV PUSH PRN (11:37)
[2018-04-27] MEDS ORDERED: Ketorolac INJ* 30 MG/ML 1 ML VIAL IV PRN (11:37)
[2018-04-27] MEDS ORDERED: Naloxone* 0.4 MG/ML 1 ML VIAL IV PRN (11:37)
[2018-04-27] MEDS ORDERED: Labetalol IV* 5 MG/ML 20 ML VIAL IV PUSH PRN (11:37)
[2018-04-27] MEDS ORDERED: fentaNYL* 50 MCG/ML 2 ML VIAL (100 MCG VIAL) IV PRN (11:37)
[2018-04-27] MEDS ORDERED: hydrALAZINE IV* 20 MG/ML VIAL IV SLOW PU PRN (11:37)
[2018-04-27] MEDS ORDERED: Ondansetron INJ* 2 MG/ML VIAL ONE (13:52)
[2018-04-27 15:56] VITALS: BP 150/94
--- NOTE | 2018-04-28 02:33 | OP ---
DATE OF OPERATION: 04/27/18 - [facility] DATE OF : 76 SURGEON: Raad Parsons MD CERTIFIED WELLNESS PROGRAM MANAGER: KARLIE Escalona ANESTHESIOLOGIST: Dr. Valerio. ANESTHESIA: General interscalene block. PRE-OP DIAGNOSES: Right shoulder rotator cuff tear of the supra and infraspinatus tendon. POST-OP DIAGNOSES: Right shoulder rotator cuff tear of the supra and infraspinatus tendon. OPERATIVE PROCEDURE: 1. Right shoulder arthroscopy with extensive glenohumeral debridement including debridement of the anterior and posterior labrum. 2. Subacromial decompression with acromioplasty. 3. Rotator cuff repair of the supra and infraspinatus tendon in double row fashion. COMPLICATIONS: None. ESTIMATED BLOOD LOSS: Minimal. IMPLANTS: Three Mckinley and Nephew Healicoils and two Multifixes. INDICATIONS: Coy Mancera is a 37-year-old male who slipped on ice and sustained injury to his shoulder, diagnosed with a full thickness tear of the supra and infraspinatus tendon. He does have a smoking history, he has been working on quitting smoking. The risks and benefits of surgery were discussed in length including but not limited to bleeding, infection, damage to nerves, vessels, surrounding structures, wound nonhealing, persistent pain, need for surgery, scarring, stiffness, incomplete relief of symptoms, risk of anesthesia. DESCRIPTION OF PROCEDURE: The patient was greeted in the preoperative area by the attending surgeon. The correct extremity was marked and consent was confirmed. The patient was brought back to the operating suite where he was placed in supine position on the operating table. He then underwent general anesthesia and endotracheal intubation after which he was placed in the left lateral decubitus position with an axillary roll. All bony prominences were padded and secured with the peg board. The right shoulder was then prepped and draped in the usual sterile fashion beginning with chlorhexidine soap, scrub and alcohol wipe and a final prep with ChloraPrep. After appropriate surgical pause indicating side, site, and procedure, administration of antibiotics, standard postero-lateral portal was made sharply with an 11 blade. The scope was introduced into the joint and the joint was examined. There were grade 0 changes to the glenohumeral joint. The superior labrum appeared to be intact, but there was some synovitis posteriorly, but the biceps was felt, it was pretty good. The inferior recess intact. Subscapularis was intact. The anterior and posterior labrum had some fraying, which was debrided back using the shaver, inferior labrum as well. There was evidence of full thickness tear at the supra and infraspinatus tendon. The scope was then positioned in the subacromial space. With the scope in subacromial space, lateral portal was made in an outside-in fashion. Shaver was used to debride back the bursa. The rotator cuff _ to the acromion, so this was carefully released. The cuff was found to be only retracted about 1 to 2 cm. With the cuff tissue carefully mobilized and then the undersurface of the acromion skeletonized, there was a small bony piece that was removed from the scar to the acromion. The acromion was skeletonized. The 4-0 oval marshal was then used to do an acromioplasty. Once this was complete, attention was directed to the cuff. The cuff tissue was carefully mobilized. Adhesions were released both in the bursal and articular side. Once the cuff tissue was mobilized, attention was directed to the greater tuberosity. The tuberosity was prepared in the usual fashion using a 4- 0 oval marshal, the rasp as well. After this was done, anchor placement began beginning with the most anterior aspect. Again, the biceps was visualized, but it was found to be intact, it was sitting nicely in the groove, so it was left alone. The anchor placement began, the bone was very good quality. The three 4.75 Healicoils were placed along the medial row with excellent purchase. Sutures were passed through the tendon in horizontal mattress configuration, this is a very expansile tear. These were then tied down and then one set from each knot was then passed through a Multifix for a lateral row fixation, one was anterior and one was laterally based. This allowed for a nice jitendra cross pattern and allowed for compression of the cuff. Final images were obtained. The wounds were copiously irrigated with sterile saline. The portals were closed with 3-0 nylon. Sterile dressings were applied. A Cryo/Cuff was applied. He was awoken from anesthesia and transferred to PACU in stable condition. POSTOPERATIVE PLAN: He will be nonweightbearing. He will be in a sling for 6 weeks. He will be discharged on pain medications. DVT prophylaxis was considered but deferred due to no previous personal or family history. I will see the patient back in 10 to 14 days. [id number]/[facility] #: [id number] MIKE
== END 2018-04-27 16:36 | disposition home or self-care (01) ==
LOC: OR 10:21
PROVIDERS: ATTEND Orthopaedic Surgery
DX: S46.011A Strain of muscle(s) and tendon(s) of the rotator cuff of right shoulder, initial encounter (principal); S43.491A Other sprain of right shoulder joint, initial encounter; Z72.0 Tobacco use; G89.18 Other acute postprocedural pain; I10 Essential (primary) hypertension; J45.909 Unspecified asthma, uncomplicated; K21.9 Gastro-esophageal reflux disease without esophagitis; F32.9 Major depressive disorder, single episode, unspecified; W00.0XXA Fall on same level due to ice and snow, initial encounter; Y92.9 Unspecified place or not applicable
CPT/HCPCS: A9270-GY; C1713; J0360; J0690; J1100; J2250; J2405; J2704; J2795; J3010

== ENCOUNTER 2018-06-09 14:22 | Emergency (ER) | payer SELFPAY ==
[2018-06-09] MEDS ORDERED: Aspirin 81 mg CHEW TAB* 81 MG TAB.CHEW PO ONE (14:46)
--- NOTE | 2018-06-09 14:46 | ED ---
HPI Chest Pain - HPI Summary HPI Summary: A 37 y/o male brought in by [facility] ambulance presents to [facility] with a chief complaint of CP. He claims that he was having sharp chest pain since 12:00 today. While at his orthopedic appointment at 13:00 for tearing his rotator cuff he had high blood pressure. BP in ED room 157/115. He has a Hx of HTN and took his BP medication. He did not take his medication for acid reflux disease. He rates his pain as a 7/10 in severity and his pain is worsened with deep breaths. He does not usually get chest pain when walking. He denies fever, chills, swelling in his legs, N/V, SOB or dizziness. He takes 10mg Norvasc. He reports drinking occasionally, and being a light smoker but denies drug use. He has not had a stress test done. FHx of cardiac disease from grandparents. - History of Current Complaint Time Seen by Provider: 06/09/18 14:32 Hx Obtained From: Patient, EMS Onset/Duration: Started Hours Ago, Still Present Timing: Constant, Lasting Hours Initial Severity: Severe Current Severity: Severe Pain Intensity: 7 Pain Scale Used: 0-10 Numeric Chest Pain Location: Diffuse - right sided Chest Pain Radiates: No Character: Sharp/Stabbing Aggravating Factor(s): Deep Breaths Alleviating Factor(s): Nothing Associated Signs and Symptoms: Negative: Dizziness, Shortness of Breath, Fever, Chills, Nausea, Vomiting - Allergy/Home Medications Allergies/Adverse Reactions: Allergies Allergy/AdvReac Type Severity Reaction Status Date / Time No Known Allergies Allergy Verified 04/27/18 10:39 Home Medications: Home Medications Bupropion XL* [Wellbutrin XL *] 150 mg PO DAILY 06/09/18 [History Confirmed ] Ibuprofen TAB* [Advil TAB*] 400 mg PO Q6H PRN 06/09/18 [History Confirmed ] traMADol TAB* [Ultram*] 50 mg PO Q6HR PRN 06/09/18 [History Confirmed 06/09/18] PMH/Surg Hx/FS Hx/Imm Hx Endocrine/Hematology History: Denies: Hx Diabetes, Hx Thyroid Disease Cardiovascular History: Reports: Hx Hypertension - ON MEDS Denies: Hx Congestive Heart Failure, Hx Deep Vein Thrombosis, Hx Myocardial Infarction, Hx Pacemaker/ICD Respiratory History: Reports: Hx Asthma - Hx OF, NONE FEW YEARS Denies: Hx Chronic Obstructive Pulmonary Disease (COPD), Hx Lung Cancer GI History: Reports: Hx Gastroesophageal Reflux Disease - OCCASSIONAL, NO MEDS Denies: Hx Gall Bladder Disease, Hx Gastrointestinal Bleed, Hx Ulcer, Hx Urosepsis History: Denies: Hx Kidney Stones, Hx Renal Disease Musculoskeletal History: Reports: Hx Arthritis - SHOULDERS Sensory History: Reports: Hx Contacts or Glasses - GLASSES Denies: Hx Hearing Aid Opthamlomology History: Reports: Hx Contacts or Glasses - GLASSES Neurological History: Reports: Hx Headaches - RARE, TAKES OTC MEDS Denies: Hx Dementia, Hx Migraine, Hx Seizures, Hx Transient Ischemic Attacks (TIA) Psychiatric History: Reports: Hx Depression - NO MEDS Denies: Hx Anxiety, Hx Panic Disorder, Hx Schizophrenia, Hx Bipolar Disorder - Surgical History Hx Anesthesia Reactions: No Infectious Disease History: Denies: Hx Hepatitis, Hx Human Immunodeficiency Virus (HIV), Hx of Known/ Suspected MRSA, History Other Infectious Disease - Family History Known Family History: Positive: Cardiac Disease, Hypertension, Diabetes, Respiratory Disease - COPD, Other - CVA - Social History Alcohol Use: Occasionally Alcohol Amount: 1-2 DRINKS/MONTH Hx Substance Use: No Substance Use Type: Reports: None Hx Tobacco Use: Yes Smoking Status (MU): Light Every Day Tobacco Smoker Type: Cigarettes Amount Used/How Often: 1/2 PACK EVERY COUPLE DAYS CURRENTLY, PAST YEARS 1 PPD Length of Time of Smoking/Using Tobacco: 20 YRS Have You Smoked in the Last Year: Yes Review of Systems Negative: Fever Positive: Chest Pain, Other - positive: high BP Negative: Shortness Of Breath Negative: Vomiting, Nausea Negative: Edema Neurological: Negative - dizziness All Other Systems Reviewed And Are Negative: Yes Physical Exam - Summary Physical Exam Summary: Appearance: Well appearing, no pain distress Skin: warm, dry, reflects adequate perfusion Head/face: normal Eyes: EOMI, YIN ENT: normal Neck: supple, non-tender Respiratory: CTA, breath sounds present Cardiovascular: RRR, pulses symmetrical, tenderness over right chest Abdomen: non-tender, soft Musculoskeletal: normal, strength/ROM intact Neuro: normal, sensory motor intact, A&Ox3 Triage Information Reviewed: Yes Vital Signs Reviewed: Yes Diagnostics - Laboratory Result Diagrams: 06/09/18 14:53 06/09/18 14:53 Lab Statement: Any lab studies that have been ordered have been reviewed, and results considered in the medical decision making process. - Radiology CXR Radiology Interpretation Completed By: Radiologist Summary of Radiographic Findings: NO ACTIVE CARDIOPULMONARY DISEASE IS NOTED. ED physician has reviewed this imaging report. - EKG 14:48 Cardiac Rate: NL - 80 bpm EKG Rhythm: Sinus Rhythm Summary of EKG Findings: Normal sinus rhythm at 80 bpm, no acute changes. Chest Pain Course/Dx - Course Course Of Treatment: A 37 y/o male brought in by [facility] ambulance presents to [facility] with a chief complaint of CP. He claims that he was having sharp chest pain since 12:00 today. While at his orthopedic appointment at 13:00 for tearing his rotator cuff he had high blood pressure. The physical exam revealed tenderness over the right chest. In the ED course the patient was given Tylenol PO and Aspirin PO. EKG showed Normal sinus rhythm at 80 bpm, no acute changes. CXR impression: NO ACTIVE CARDIOPULMONARY DISEASE IS NOTED. Blood work and chemistries obtained. The patient will be discharged and follow up with Dr. Salazar. The patient is agreeable with this plan. - Chest Pain Differential Diagnosis/HQI/PQRI: Angina, Chest Wall, Lower Respiratory Infection - Diagnoses Provider Diagnoses: Chest pain, atypical Discharge - Sign-Out/Discharge Documenting (check all that apply): Patient Departure - DC Patient Received Moderate/Deep Sedation with Procedure: No - Discharge Plan Condition: Stable Disposition: HOME Patient Education Materials: Chest Pain (DC) Referrals: Durga Terry MD [Primary Care Provider] - 3 Days Hi Salazar MD [Medical Doctor] - Additional Instructions: Follow up with Dr. Salazar Return to the ED if you experience any new or worsening symptoms. - Billing Disposition and Condition Condition: STABLE Disposition: Home - Attestation Statements Document Initiated by Scribe: Yes Documenting Scribe: Sha Francois Provider For Whom James is Documenting (Include Credential): Eleuterio Valderrama MD Scribe Attestation: Sha Edwards, scribed for Eleuterio Valderrama MD on 06/10/18 at 1159. Scribe Documentation Reviewed: Yes Provider Attestation: The documentation as recorded by the Sha allison accurately reflects the service I personally performed and the decisions made by me, Eleuterio Valderrama MD Status of Scribe Document: Viewed
[2018-06-09] MEDS ORDERED: Acetaminophen TAB* 325 MG PO ONE (14:47)
[2018-06-09 15:06] LABS: ABS Basophils 0 10^3/ul (0-0.2); ABS Eosinophils 0.1 10^3/ul (0-0.6); ABS Lymphocytes 2.6 10^3/ul (1.0-4.8); ABS Monocytes 0.7 10^3/ul (0-0.8); ABS Neutrophils 3.5 10^3/ul (1.5-7.7); ABS Nucleated RBC 0 10^3/ul; Eosinophil % 1.7 %; Hematocrit 45 % (36-46); Hemoglobin 14.6 g/dL (14.0-18.0); Lymphocyte % 37.1 %; Mean Corpuscular HGB Conc 33 g/dL (31-36); Mean Corpuscular Hemoglobin 29 pg (27-31); Mean Corpuscular Volume 88 fL (80-94); Mean Platelet Volume 8.3 fL (7.4-10.4); Nucleated Red Blood Cells % 0.2; Platelet Count 249 10^3/uL (150-450); Red Blood Count 5.07 10^6 /uL (4.18-5.48); Red Cell Distribution Width 16 % (10.5-15)
[2018-06-09 15:24] LABS: Troponin I 0.01 ng/mL (<0.04)
[2018-06-09 15:26] LABS: INR 1.14 (0.82-1.09)
[2018-06-09 15:46] LABS: Albumin 4.4 g/dL (3.2-5.2); Albumin/Globulin Ratio 1.3 (1-3); BUN/Creatinine Ratio 15.4 (8-20); Calcium 9.3 mg/dL (8.6-10.3); EGFR African American 134.1 (>60); EGFR Non-African American 110.8 (>60); Globulin 3.4 g/dL (2-4); Potassium 3.6 mmol/L (3.5-5.0); Total Bilirubin 0.4 mg/dL (0.2-1.0); Total Protein 7.8 g/dL (6.4-8.9)
[2018-06-09 18:33] VITALS: BP 174/107
== END 2018-06-09 18:33 | disposition home or self-care (01) ==
LOC: ED 14:22
DX: R07.89 Other chest pain (principal); I10 Essential (primary) hypertension; F17.210 Nicotine dependence, cigarettes, uncomplicated
CPT/HCPCS: 36415; 71045; 80053; 83605; 83880; 84484; 85025; 85379; 85610; 85730; 93005; 99284; A9270-GY

== ENCOUNTER 2018-12-12 08:57 | Emergency (ER) | payer OTHER ==
[2018-12-12] MEDS ORDERED: Ketorolac INJ* 30 MG/ML 1 ML VIAL IV PUSH ONE (09:17)
[2018-12-12] MEDS ORDERED: Ondansetron INJ* 2 MG/ML VIAL IV ONE (09:18)
--- NOTE | 2018-12-12 09:21 | ED ---
GI/ HPI - HPI Summary HPI Summary: 38-year-old female presents with abdominal pain for the past week. He's been having pain in his left lower quadrant. He states he been having diarrhea. No blood in stool. He admits to nausea vomiting. He admits to decreased appetite. No fevers. Has no previous history of diverticulitis or colitis. No previous bowel surgeries. He states the past days has had cough. He has had chest pain with cough. no sob. He denies any history of asthma or COPD. Is a smoker. Denies any shortness of breath. he admits to dysuria. states had sex without protection a couple days ago. - History of Current Complaint Chief Complaint: EDGeneral Time Seen by Provider: 12/12/18 09:04 Stated Complaint: CANT SLEEP/STOMACH PAIN/DIARRHEA PER PT Pain Intensity: 6 - Allergy/Home Medications Allergies/Adverse Reactions: Allergies Allergy/AdvReac Type Severity Reaction Status Date / Time No Known Allergies Allergy Verified 12/12/18 09:12 Home Medications: Home Medications Lisinopril/HCTZ (NF) [Zestoretic (NF)] 1 tab PO DAILY 12/12/18 [ History Confirmed 12/12/18] Metformin HCl 500 mg PO BID 12/12/18 [History Confirmed 12/12/18] Naproxen [Naproxen 500 mg tab] 500 mg PO BID PRN 12/12/18 [History Confirmed ] PMH/Surg Hx/FS Hx/Imm Hx Endocrine/Hematology History: Denies: Hx Diabetes, Hx Thyroid Disease Cardiovascular History: Reports: Hx Hypertension - ON MEDS Denies: Hx Congestive Heart Failure, Hx Deep Vein Thrombosis, Hx Myocardial Infarction, Hx Pacemaker/ICD Respiratory History: Reports: Hx Asthma - Hx OF, NONE FEW YEARS Denies: Hx Chronic Obstructive Pulmonary Disease (COPD), Hx Lung Cancer GI History: Reports: Hx Gastroesophageal Reflux Disease - OCCASSIONAL, NO MEDS Denies: Hx Gall Bladder Disease, Hx Gastrointestinal Bleed, Hx Ulcer, Hx Urosepsis History: Denies: Hx Kidney Stones, Hx Renal Disease Musculoskeletal History: Reports: Hx Arthritis - SHOULDERS Sensory History: Reports: Hx Contacts or Glasses - GLASSES Denies: Hx Hearing Aid Opthamlomology History: Reports: Hx Contacts or Glasses - GLASSES Neurological History: Reports: Hx Headaches - RARE, TAKES OTC MEDS Denies: Hx Dementia, Hx Migraine, Hx Seizures, Hx Transient Ischemic Attacks (TIA) Psychiatric History: Reports: Hx Depression - NO MEDS Denies: Hx Anxiety, Hx Panic Disorder, Hx Schizophrenia, Hx Bipolar Disorder - Surgical History Surgery Procedure, Year, and Place: RTC REPAIR RT SHOULDER 04/27/18 Hx Anesthesia Reactions: No Infectious Disease History: No Infectious Disease History: Denies: Hx Hepatitis, Hx Human Immunodeficiency Virus (HIV), Hx of Known/ Suspected MRSA, History Other Infectious Disease, Traveled Outside the [place] in Last 30 Days - Family History Known Family History: Positive: Cardiac Disease, Hypertension, Diabetes, Respiratory Disease - COPD, Other - CVA - Social History Alcohol Use: Occasionally Alcohol Amount: 1-2 DRINKS/MONTH Hx Substance Use: No Substance Use Type: Reports: None Hx Tobacco Use: Yes Smoking Status (MU): Light Every Day Tobacco Smoker Type: Cigarettes Amount Used/How Often: 1/2 PACK EVERY COUPLE DAYS CURRENTLY, PAST YEARS 1 PPD Length of Time of Smoking/Using Tobacco: 20 YRS Have You Smoked in the Last Year: Yes Review of Systems Negative: Fever Negative: Chest Pain Positive: Cough. Negative: Shortness Of Breath Positive: Abdominal Pain, Vomiting, Diarrhea, Nausea Positive: dysuria All Other Systems Reviewed And Are Negative: Yes Physical Exam Triage Information Reviewed: Yes Vital Signs On Initial Exam: Initial Vitals Temp Pulse Resp BP Pulse Ox 98 F 100 19 143/103 98 12/12/18 08:59 12/12/18 08:59 12/12/18 08:59 12/12/18 08:59 12/12/18 08:59 Vital Signs Reviewed: Yes Appearance: Positive: Well-Appearing Skin: Positive: Warm, Dry Head/Face: Positive: Normal Head/Face Inspection Eyes: Positive: Normal, Conjunctiva Clear ENT: Positive: Pharynx normal Respiratory/Lung Sounds: Positive: Clear to Auscultation, Breath Sounds Present Cardiovascular: Positive: Normal, RRR Abdomen Description: Positive: Soft, Other: - tenderness in LLQ Bowel Sounds: Positive: Present Musculoskeletal: Positive: Normal Neurological: Positive: Normal Psychiatric: Positive: Normal Procedures - Sedation Patient Received Moderate/Deep Sedation with Procedure: No Diagnostics - Vital Signs Vital Signs Temp Pulse Resp BP Pulse Ox 12/12/18 08:59 98 F 100 19 143/103 98 - Laboratory Result Diagrams: 12/12/18 09:24 12/12/18 09:24 Lab Statement: Any lab studies that have been ordered have been reviewed, and results considered in the medical decision making process. - Radiology chest Radiology Interpretation Completed By: Radiologist Summary of Radiographic Findings: IMPRESSION: NO EVIDENCE FOR ACTIVE CARDIOPULMONARY DISEASE - CT abd CT Interpretation Completed By: Radiologist Summary of CT Findings: IMPRESSION: 1. THERE IS MILD INTERSTITIAL STRANDING IN THE FAT ADJACENT TO THE PROXIMAL SIGMOID COLON SUGGESTIVE OF EPIPLOIC APPENDAGITIS LESS LIKELY MILD DIVERTICULITIS. 2. MILD HEPATOMEGALY AND HEPATIC STEATOSIS. Re-Evaluation - Re-Evaluation First Eval Re-Evaluation Time: 10:31 Change: Improved Comment: feeling better GIGU Course/Dx - Course Course Of Treatment: 38-year-old female presents with abdominal pain for the past week. He's been having pain in his left lower quadrant. He states he been having diarrhea. No blood in stool. He admits to nausea vomiting. He admits to decreased appetite. No fevers. Has no previous history of diverticulitis or colitis. No previous bowel surgeries. He states the past days has had cough. He has had chest pain with cough. no sob. He denies any history of asthma or COPD. Is a smoker. Denies any shortness of breath. On exam lungs clear to auscultation. Abdomen tenderness in left lower quadrant. wbc normal. crp elevated. electolytes normal. chest xray shows no acute process. urine no infection. CT shows epiploic appenditigis and less likely diverticultis but sx seem more like diverticulitis so will place on augmentin. will treat upper resp sx supporatively. patient understand and agrees with plan. - Diagnoses Differential Diagnoses - Male: Diverticulitis, Gastroenteritis (Bacterial), Gastroenteritis (Viral) Provider Diagnoses: Diverticulitis, Upper respiratory infection Discharge ED - Sign-Out/Discharge Documenting (check all that apply): Patient Departure - Discharge Plan Condition: Good Disposition: HOME Prescriptions: Amoxicillin/Clavulanate TAB* [Augmentin TAB 875*] 875 mg PO BID #13 tab Patient Education Materials: Diverticulitis (ED) Forms: *Work Release Referrals: Patrizia Cazares MD [Primary Care Provider] - Additional Instructions: Take augmentin twice a day for 7 days, first dose given in ED Follow clear liquid diet until symptoms improve Take ibuprofen or Tylenol every 6 hours for pain Return to ED if develop any new or worsening symptoms - Billing Disposition and Condition Condition: GOOD Disposition: Home
[2018-12-12 09:38] LABS: ABS Basophils 0.1 10^3/ul (0-0.2); ABS Eosinophils 0.1 10^3/ul (0-0.6); ABS Monocytes 0.7 10^3/ul (0-0.8); ABS Neutrophils 5.2 10^3/ul (1.5-7.7); Eosinophil % 1.1 %; Hematocrit 46 % (42-52); Hemoglobin 14.8 g/dL (14.0-18.0); Lymphocyte % 33.3 %; Mean Corpuscular HGB Conc 32 g/dL (31-36); Mean Corpuscular Hemoglobin 29 pg (27-31); Mean Corpuscular Volume 89 fL (80-94); Mean Platelet Volume 8.4 fL (7.4-10.4); Nucleated Red Blood Cells % 0.3; Platelet Count 317 10^3/uL (150-450); Red Blood Count 5.17 10^6 /uL (4.18-5.48); Red Cell Distribution Width 16 % (10-15); White Blood Count 9.1 10^3/uL (3.5-10.8)
--- OUTSIDE RECORDS SUMMARY | 2018-12-12 09:52 | XMS REPORT | Continuity of Care Document ---
:1980 External Reference #:[id number] Author Name Patrizia Cazares MD (transmitted by agent of provider Hallie Ellison) Address [address], [place] [address] Care Team Providers Name Role Phone Shana Yo DPM - Parole Officer Care Team Information System Software Programmer [phone] Patrizia Cazares MD - Internal Medicine Care Team Information System Software Programmer Problems Active Problems Provider Date Essential hypertension Mauricio Chance M.D. Onset: 08/24/2014 Depressive disorder Mauricio Chance M.D. Onset: 08/24/2014 Obesity Everardo Deleon M.D. Onset: 08/23/2015 Tobacco user Everardo Deleon M.D. Onset: 08/23/2015 Mantoux: positive Durga Terry M.D.,FACP Onset: 11/07/2017 Sprain of shoulder rotator cuff Raad Parsons MD Onset: 04/07/2018 Strain of rotator cuff capsule Raad Parsons MD Onset: 05/08/2018 Fall on ice Raad Parsons MD Onset: 05/08/2018 Social History Type Date Description Comments Sex Unknown Tobacco Use Start: Unknown Light tobacco smoker (10 or fewer cigarettes/day) ETOH Use Consumed 2 pints of liquor per week in the past ETOH Use 05/08/2015 Occasionally consumes rare as per patient alcohol Recreational Drug Use Denies Drug Use Recreational Drug Use Denies Drug Use Tobacco Use Start: Unknown Patient is a current can smoke up to 1/2 smoker, smokes some ppd, some days days doesn't smoke at all - has smoked x 12 yrs Smoking Status Reviewed: 11/05/18 Patient is a current can smoke up to 1/2 smoker, smokes some ppd, some days days doesn't smoke at all - has smoked x 12 yrs Exercise Type/Frequency Plays sports 2 times a week Exercise Type/Frequency Exercises regularly Allergies, Adverse Reactions, Alerts Description No Known Drug Allergies Medications Active Medications SIG Qnty Indications Ordering Date Provider Amlodipine Besylate take 1 tablet by 90tabs Patrizia Cazares MD 11/05/2018 mouth every 10mg Tablets evening Bupropion take 1 tablet by 90tabs Patrizia Cazares MD 11/05/2018 Hydrochloride ER mouth every day (XL) 150mg Tablets ER 24HR Metformin HCL 1 tablets every 180tabs R73.03 Patrizia Cazares MD 08/05/2018 500mg morning and 1 Tablets tablet by mouth at bedtime Nicotine Transdermal apply transdermal 28units Patrizia Cazares MD 07/27/2018 System Step 3 patch daily 7mg/24HR Patches 24HR Nicotrol 1 cartridges every 168units Patrizia Cazares MD 07/27/2018 10mg Inhaler 2 hours as needed Naproxen take 1 tablet by 30tabs M25.511 Patrizia Cazares MD 07/15/2018 500mg mouth twice a day Tablets with food Pantoprazole Sodium Take one tablet 90tabs M25.511 Patrizia Cazares MD [address] Ibuprofen 1 tablet every 6 90tabs M54.42 Raad Parsons, 04/01/2016 600mg hours three times MD Tablets a day Lisinopril-Hydrochlo 1 by mouth every Unknown rothiazide day 20-25mg Tablets History Medications Hydrochlorothiazide Take 1 Tablet 30tabs I10 Patrizia Cazares, 07/15/2018 - 25mg Tablets By Mouth Every MD 10/05/2018 Day Medications Administered in Office Medication SIG Qnty Indications Ordering Provider Date Technetium TC 99M Hi Thomas M.D. 11/23/2015 Per Unit Dose Up To 40 Millicuries Injection Immunizations CPT Code Status Date Vaccine Lot # [id number] Given 09/25/2018 Measles Mumps And Rubella MMR 38466 Given 11/07/2017 Pneumonia Vaccine [id number] Given 11/07/2017 Influenza Virus Vaccine, Quadrivalent, Split, [id number] Preservative Free Vital Signs Date Vital Result Comment 11/05/2018 9:27am Height 69 inches 5'9" Weight 259.00 lb Heart Rate 74 /min BP Systolic 162 mmHg BP Diastolic 106 mmHg BP Systolic Sitting 159 mmHg BP Diastolic Sitting 114 mmHg Body Temperature 97.3 F O2 % BldC Oximetry 95 % BMI (Body Mass Index) 38.2 kg/m2 10/01/2018 3:39pm Height 69 inches 5'9" Weight 263.00 lb Heart Rate 104 /min BP Systolic 152 mmHg BP Diastolic 84 mmHg Body Temperature 99.2 F Pain Level 2 BMI (Body Mass Index) 38.8 kg/m2 Results Test Date Facility Test Result H/L Range Note Laboratory test 11/05/2018 [facility] Hemoglobin A1c 6.1 5-7 finding Basic Metabolic 08/05/2018 [facility] Sodium 139 mmol/L Normal 135-145 [address] [place] [address] [phone] Potassium 3.8 mmol/L Normal 3.5-5.0 Chloride 103 mmol/L Normal 101-111 Co2 Carbon Dioxide 29 mmol/L Normal 22-32 Anion Gap 7 mmol/L Normal 2-11 Glucose 140 mg/dL High 70-100 Blood Urea Nitrogen 16 mg/dL Normal 6-24 Creatinine 0.88 mg/dL Normal 0.67-1.17 BUN/Creatinine Ratio 18.2 Normal 8-20 Calcium 9.7 mg/dL Normal 8.6-10.3 Egfr Non- 95.9 >60 Egfr 116.1 >60 1 Laboratory test 08/05/2018 [facility] Magnesium 2.0 mg/dL Normal 1.9-2.7 [place] [address] [phone] Basic Metabolic 07/15/2018 [facility] Sodium 140 mmol/L Normal 135-145 [place] [address] [phone] Potassium 3.8 mmol/L Normal 3.5-5.0 Chloride 105 mmol/L Normal 101-111 Co2 Carbon Dioxide 28 mmol/L Normal 22-32 Anion Gap 7 mmol/L Normal 2-11 Glucose 92 mg/dL Normal 70-100 Blood Urea Nitrogen 12 mg/dL Normal 6-24 Creatinine 0.85 mg/dL Normal 0.67-1.17 BUN/Creatinine Ratio 14.1 Normal 8-20 Calcium 9.4 mg/dL Normal 8.6-10.3 Egfr Non- 99.8 >60 Egfr 120.8 >60 2 Laboratory test 07/15/2018 [facility] Hemoglobin A1c 6.4 % High 4.0-5.6 [address] (Glyco HGB) [place], [place] [id number] [phone] Laboratory test 06/09/2018 [facility] Troponin-I 0.01 <0.04 [address] (TnI) ng/[place] [address] [phone] CBC Auto Diff 06/09/2018 [facility] White Blood 7.0 Normal 3.5 -10.[address] Count 10^3/[place] [address] [phone] Red Blood Count 5.07 10^6/uL Normal 4.18-5.48 Hemoglobin 14.6 g/dL Normal 14.0-18.0 Hematocrit 45 % Normal 36-46 Mean Corpuscular Volume 88 fL Normal 80-94 Mean Corpuscular Hemoglobin 29 pg Normal 27-31 Mean Corpuscular HGB Conc 33 g/dL Normal 31-36 Red Cell Distribution Width 16 % High 10.5-15 Platelet Count 249 10^3/uL Normal 150-450 Mean Platelet Volume 8.3 fL Normal 7.4-10.4 Abs Neutrophils 3.5 10^3/uL Normal 1.5-7.7 Abs Lymphocytes 2.6 10^3/uL Normal 1.0-4.8 Abs Monocytes 0.7 10^3/uL Normal 0-0.8 Abs Eosinophils 0.1 10^3/uL Normal 0-0.6 Abs Basophils 0 10^3/uL Normal 0-0.2 Abs Nucleated RBC 0 10^3/uL Granulocyte % 50.5 % Lymphocyte % 37.1 % Monocyte % 10.1 % Eosinophil % 1.7 % Basophil % 0.6 % Nucleated Red Blood Cells % 0.2 Laboratory 06/09/2018 [facility] B-Type 20 pg/mL <=100 test finding [address] [place] [address] Peptide BNP [phone] Inr/Protime 06/09/2018 [facility] Inr 1.14 High 0.82-1.[address] [place] [address] [phone] Laboratory 06/09/2018 [facility] Partial Thrombo 38.0 High 26.0-36.3 test finding [address] [place] [address] [phone] D Dimer Quantitative < 200 ng/mL Normal Less Than 230 6 Lactic Acid 0.7 mmol/L Normal 0.5-2.0 7 Troponin-I (TnI) 0.01 ng/mL <0.04 8 Comp Metabolic 06/09/2018 [facility] Sodium 139 mmol/L Normal 135-[address] [place] [address] [phone] Potassium 3.6 mmol/L Normal 3.5-5.0 Chloride 106 mmol/L Normal 101-111 Co2 Carbon Dioxide 26 mmol/L Normal 22-32 Anion Gap 7 mmol/L Normal 2-11 Glucose 70 mg/dL Normal 70-100 Blood Urea Nitrogen 12 mg/dL Normal 6-24 Creatinine 0.78 mg/dL Normal 0.67-1.17 BUN/Creatinine Ratio 15.4 Normal 8-20 Calcium 9.3 mg/dL Normal 8.6-10.3 Total Protein 7.8 g/dL Normal 6.4-8.9 Albumin 4.4 g/dL Normal 3.2-5.2 Globulin 3.4 g/dL Normal 2-4 Albumin/Globulin Ratio 1.3 Normal 1-3 Total Bilirubin 0.40 mg/dL Normal 0.2-1.0 Alkaline Phosphatase 98 U/L Normal 34-104 Alt 34 U/L Normal 7-52 Ast 20 U/L Normal 13-39 Egfr Non- 110.8 >60 Egfr 134.1 >60 9 1 Because ethnic data is not always readily available, this report includes an eGFR for both -Americans and non- Americans. The National Kidney Disease Education Program (NKDEP) does not endorse the use of the MDRD equation for patients that are not between the ages of 18 and 70, are , have extremes of body size, muscle mass, or nutritional status, or are non- or non-. According to the National Kidney Foundation, irrespective of diagnosis, the stage of the disease is based on the level of kidney function: Stage Description GFR(mL/min/1.73 m(2)) 1 Kidney damage with normal or decreased GFR 90 2 Kidney damage with mild decrease in GFR 60-89 3 Moderate decrease in GFR 30-59 4 Severe decrease in GFR 15-29 5 Kidney failure <15 (or dialysis) 2 Because ethnic data is not always readily available, this report includes an eGFR for both -Americans and non- Americans. The National Kidney Disease Education Program (NKDEP) does not endorse the use of the MDRD equation for patients that are not between the ages of 18 and 70, are , have extremes of body size, muscle mass, or nutritional status, or are non- or non-. According to the National Kidney Foundation, irrespective of diagnosis, the stage of the disease is based on the level of kidney function: Stage Description GFR(mL/min/1.73 m(2)) 1 Kidney damage with normal or decreased GFR 90 2 Kidney damage with mild decrease in GFR 60-89 3 Moderate decrease in GFR 30-59 4 Severe decrease in GFR 15-29 5 Kidney failure <15 (or dialysis) 3 Therapeutic target for the treatment of diabetes mellitus patients is <7% HBA1C, and in selective patients <6.0%. Please refer to [place] [employer] diabetic care guidelines for further information. 4 Troponin-I testing on Plasma Separator Tubes (PST) has a known false positive rate of 0.20-0.40%. All positive troponins reflex immediately to secondary confirmatory testing. Using the [employer] DxI 800 Access Immunoassay systems, the 99th percentile upper reference limit was demonstrated to be < 0.03 ng/mL. 5 Standard intensity warfarin therapeutic range: 2.0-3.0 High intensity warfarin therapeutic range: 2.5-3.5 6 Please note: The following may produce a false positive D Dimer test: - Rheumatoid factor greater than 60 IU/ml - Plasma hemoglobin greater than 0.05 gm/dl - Bilirubin greater than 50 mg/dl - Lipids greater than 1000 mg/dl - FDP greater than 20 ug/ml 7 [facility] Severe Sepsis and Septic Shock Management Bundle Measure requires all lactic acids initially measuring >2.0 mmol/L be repeated. 8 Troponin-I testing on Plasma Separator Tubes (PST) has a known false positive rate of 0.20-0.40%. All positive troponins reflex immediately to secondary confirmatory testing. Using the [employer] DxI 800 Access Immunoassay systems, the 99th percentile upper reference limit was demonstrated to be < 0.03 ng/mL. 9 Because ethnic data is not always readily available, this report includes an eGFR for both -Americans and non- Americans. The National Kidney Disease Education Program (NKDEP) does not endorse the use of the MDRD equation for patients that are not between the ages of 18 and 70, are , have extremes of body size, muscle mass, or nutritional status, or are non- or non-. According to the National Kidney Foundation, irrespective of diagnosis, the stage of the disease is based on the level of kidney function: Stage Description GFR(mL/min/1.73 m(2)) 1 Kidney damage with normal or decreased GFR 90 2 Kidney damage with mild decrease in GFR 60-89 3 Moderate decrease in GFR 30-59 4 Severe decrease in GFR 15-29 5 Kidney failure <15 (or dialysis) Procedures Description No Information Available Medical Devices Description No Information Available Encounters Type Date Location Provider Dx Diagnosis Office Visit 10/01/2018 Gris Parsons S46.011D Strain of emely/ geo 3:30p Services Of the rotator cuff of C.M.A. right shoulder, subs Office Visit 08/06/2018 Gris Parsons S46.011D Strain of aurea guardado 3:15p Services Of the rotator cuff of C.M.A. right shoulder, subs Office Visit 08/05/2018 Li Cazares MD I10 Essential ( primary) 10:00a Medicine - Ccmob hypertension R73.03 Prediabetes F17.210 Nicotine dependence, cigarettes, uncomplicated M79.605 Pain in left leg Office Visit 07/15/2018 11:20a Li Cazares, I10 Essential ( primary) Medicine - Ccmob hypertension F17.210 Nicotine dependence, cigarettes, uncomplicated F32.9 Major depressive disorder, single episode, unspecified M25.511 Pain in right shoulder Office Visit 06/25/2018 9:45a Gris Parsons S46.011D Strain of Services Of MD han/geo the C.M.A. rotator cuff of right shoulder, subs Assessments Date Code Description Provider 11/05/2018 R73.03 Prediabetes Patrizia Cazares MD 11/05/2018 I10 Essential (primary) hypertension Patrizia Cazares MD 11/05/2018 F32.9 Major depressive disorder, single episode, Patrizia Cazares MD unspecified 11/05/2018 F17.210 Nicotine dependence, cigarettes, uncomplicated Patrizia Cazares MD 10/01/2018 S46.011D Strain of muscle(s) and tendon(s) of the rotator Raad Parsons MD cuff of rig 08/06/2018 S46.011D Strain of muscle(s) and tendon(s) of the rotator Raad Parsons MD cuff of rig 08/05/2018 I10 Essential (primary) hypertension Patrizia Cazares MD 08/05/2018 R73.03 Prediabetes Patrizia Cazares MD 08/05/2018 F17.210 Nicotine dependence, cigarettes, uncomplicated Patrizia Cazares MD 08/05/2018 M79.605 Pain in left leg Patrizia Cazares MD 07/21/2018 S46.011D Strain of muscle(s) and tendon(s) of the rotator Raad Parsons MD cuff of rig 07/21/2018 W00.9xxA Unspecified fall due to ice and snow, initial Raad Parsons MD encounter 07/15/2018 I10 Essential (primary) hypertension Patrizia Cazares MD 07/15/2018 F17.210 Nicotine dependence, cigarettes, uncomplicated Patrizia Cazares MD 07/15/2018 F32.9 Major depressive disorder, single episode, Patrizia Cazares MD unspecified 07/15/2018 M25.511 Pain in right shoulder Patrizia Cazares MD 06/25/2018 S46.011D Strain of muscle(s) and tendon(s) of the rotator Raad Parsons MD cuff of rig 06/09/2018 S46.011D Strain of muscle(s) and tendon(s) of the rotator Raad Parsons MD cuff of rig 06/09/2018 W00.9xxA Unspecified fall due to ice and snow, initial Raad Parsons MD encounter 06/09/2018 S43.421D Sprain of right rotator cuff capsule, subsequent Raad Parsons MD encounter 05/08/2018 S46.011D Strain of muscle(s) and tendon(s) of the rotator Raad Parsons MD cuff of rig 05/08/2018 W00.9xxA Unspecified fall due to ice and snow, initial Raad Parsons MD encounter Plan of Treatment Future Appointment(s):12/03/2018 8:40 am - Patrizia Cazares MD at [facility] Internal Medicine - [facility]11/05/2018 - Patrizia Cazares, MDR73.03 PrediabetesComments:Slight improvement. Continue to take [id number] Essential (primary) hypertensionComments:I refilled NorvascPlease call with the right dose of lisinopril/HCTZ so I can refill itFollow up:F/U 4 regsqA78.9 Major depressive disorder, single episode, unspecifiedComments:Refilled your medication [id number] Nicotine dependence, cigarettes, uncomplicatedComments: Continue to try to quit Functional Status Description No Information Available Mental Status Description No Information Available Referrals Description No Information Available
[2018-12-12 09:59] LABS: Albumin 4.5 g/dL (3.2-5.2); Albumin/Globulin Ratio 1.3 (1-3); BUN/Creatinine Ratio 11.7 (8-20); Calcium 9.5 mg/dL (8.6-10.3); EGFR African American 96.8 (>60); Globulin 3.6 g/dL (2-4); Potassium 3.6 mmol/L (3.5-5.0); Total Bilirubin 0.3 mg/dL (0.2-1.0); Total Protein 8.1 g/dL (6.4-8.9)
[2018-12-12] MEDS: NS 0.9% 1000 ML** 2,000 ML IV ONE ×2 (10:20→10:21)
[2018-12-12 10:48] LABS: Urine Appearance Clear; Urine Bilirubin Negative (Negative); Urine Blood Negative (Negative); Urine Color Yellow; Urine Glucose Negative (Negative); Urine Ketones Negative (Negative); Urine Nitrite Negative (Negative); Urine Protein Negative (Negative); Urine Specific Gravity 1.026 (1.010-1.030); Urine Urobilinogen Negative (Negative)
[2018-12-12] MEDS ORDERED: Iodixanol* (CONTRAST) 320 MG/ML 100 ML SDV IV ONE (11:10)
[2018-12-12] MEDS ORDERED: Amoxicillin/Clavulanate TAB* 875 MG PO ONE (11:59)
[2018-12-12 12:21] VITALS: BP 154/104
[2018-12-14 13:32] LABS: Chlamydia trachomatis NAA Negative (Negative); Neisseria gonorrhoeae (GC) NAA Negative (Negative)
== END 2018-12-12 12:04 | disposition home or self-care (01) ==
LOC: ED 08:57
DX: K57.92 Diverticulitis of intestine, part unspecified, without perforation or abscess without bleeding (principal); J06.9 Acute upper respiratory infection, unspecified; R10.9 Unspecified abdominal pain; I10 Essential (primary) hypertension; Z79.899 Other long term (current) drug therapy; K21.9 Gastro-esophageal reflux disease without esophagitis; R51 Headache; F32.9 Major depressive disorder, single episode, unspecified; F17.210 Nicotine dependence, cigarettes, uncomplicated; R30.0 Dysuria
CPT/HCPCS: 36415; 71046; 74177; 80053; 81003; 83605; 83690; 85025; 86140; 87045; 87046; 87491; 87493; 87591; 87899; 96361; 96374; 96375; 99283; A9270-GY; J1885; J2405; Q9967

== ENCOUNTER 2019-03-30 16:19 | Emergency (ER) | payer OTHER ==
[2019-03-30 16:52] VITALS: BP 149/104
[2019-03-30] MEDS ORDERED: Acetaminophen TAB* 325 MG PO ONE (17:05)
[2019-03-30 17:26] LABS: Influenza A Molecular POSITIVE (Negative)
--- NOTE | 2019-03-30 17:48 | UC ---
FLU HPI - HPI Summary HPI Summary: 38-year-old male presents with sudden onset of fever, chills, general malaise, headache, body aches, nasal congestion, sore throat, and a dry nonproductive cough last evening. States she's been exposed to the flu at work. Denies ear pain, dysphagia, chest pain, shortness of breath, abdominal pain, nausea, vomiting, or diarrhea. - History of Current Complaint Chief Complaint: UCRespiratory Stated Complaint: COUGH Time Seen by Provider: 03/30/19 17:42 Hx Obtained From: Patient Pain Intensity: 8 - Allergy/Home Medications Allergies/Adverse Reactions: Allergies Allergy/AdvReac Type Severity Reaction Status Date / Time No Known Allergies Allergy Verified 03/30/19 16:52 PMH/Surg Hx/FS Hx/Imm Hx Endocrine History: Diabetes Cardiovascular History: Hypertension Psychological History: Depression Other History Of: Negative For: HIV, Hepatitis B, Hepatitis C - Surgical History Surgical History: Yes Surgery Procedure, Year, and Place: RTC REPAIR RT SHOULDER 04/27/18 - Family History Known Family History: Positive: Cardiac Disease, Hypertension, Diabetes, Respiratory Disease - COPD, Other - CVA - Social History Occupation: Employed Full-time Lives: With Family Alcohol Use: Rare Alcohol Amount: 1-2 DRINKS/MONTH Substance Use Type: None Smoking Status (MU): Light Every Day Tobacco Smoker Type: Cigarettes Amount Used/How Often: 1/2 PACK EVERY COUPLE DAYS CURRENTLY, PAST YEARS 1 PPD Length of Time of Smoking/Using Tobacco: 20 YRS Have You Smoked in the Last Year: Yes When Did the Patient Quit Smoking/Using Tobacco: trying to quit Household Exposure Type: Cigarettes - Immunization History Most Recent Influenza Vaccination: 2016/2016 Most Recent Tetanus Shot: unknown Review of Systems All Other Systems Reviewed And Are Negative: Yes Constitutional: Positive: Fever, Chills, Fatigue Eyes: Negative: Drainage, Eye Redness ENT: Positive: Sore Throat, Nasal Discharge, Sinus Congestion, Sinus Pain/ Tenderness. Negative: Ear Ache Respiratory: Positive: Cough. Negative: Shortness Of Breath Cardiovascular: Negative: Palpitations, Chest Pain Gastrointestinal: Negative: Abdominal Pain, Vomiting, Diarrhea, Nausea Genitourinary: Positive: Negative Musculoskeletal: Positive: Myalgia Neurological/Mental Status: Positive: Headache Is Patient Immunocompromised?: No Physical Exam - Summary Physical Exam Summary: GENERAL APPEARANCE: Well developed, well nourished, alert and cooperative, and appears to be in no acute distress. EYES: Conjunctiva clear. No drainage. EARS: External auditory canals and tympanic membranes clear, hearing grossly intact. NOSE: Moderate nasal congestion. No nasal discharge. THROAT: Pharyngeal erythema. No tonsilar inflammation, swelling, exudate, or lesions. Uvula midline. NECK: Neck supple, non-tender without lymphadenopathy. CARDIAC: Normal S1 and S2. No S3, S4 or murmurs. Rhythm is regular. There is no peripheral edema, cyanosis or pallor. Extremities are warm and well perfused. Capillary refill is less than 2 seconds. Peripheral pulses intact. LUNGS: Clear to auscultation without rales, rhonchi, wheezing or diminished breath sounds. I nonproductive cough. ABDOMEN: Positive bowel sounds. Soft, nondistended, nontender. No guarding or rebound. No masses or hepatosplenomegally. MUSKULOSKELETAL: ROM intact to all extremities. No joint erythema or tenderness. Normal muscular development. Normal gait. SKIN: Skin normal color, texture and turgor with no lesions or eruptions. Triage Information Reviewed: Yes Vital Signs: Initial Vital Signs Temp 102.6 F 03/30/19 16:47 Pulse 104 03/30/19 16:47 Resp 20 03/30/19 16:47 BP 149/104 03/30/19 16:47 Pulse Ox 100 03/30/19 16:47 Vital Signs Reviewed: Yes Flu Course/Dx - Course Course Of Treatment: 38-year-old male presents with sudden onset of fever, chills, general malaise, headache, body aches, nasal congestion, sore throat, and a dry nonproductive cough last evening. States she's been exposed to the flu at work. Denies ear pain, dysphagia, chest pain, shortness of breath, abdominal pain, nausea, vomiting, or diarrhea. Patient had an elevated temperature of 102.6 F with a corresponding tachycardia otherwise vital signs are stable. He had moderate nasal congestion, normal TMs, pharyngeal erythema, no tonsillar swelling or exudate, no cervical lymphadenopathy, clear bilateral breath sounds, dry nonproductive cough, and otherwise unremarkable exam. Rapid influenza was positive for influenza A. Reviewed results with the patient. Discussed the risks and benefits of treating with Tamiflu and patient is electing to start at this time. Additionally recommended symptomatic treatment including Tessalon Perles 1 capsule every 8 hours as needed for cough. He is to follow-up with his primary care provider in 5-7 days if symptoms are not improving. Anticipatory guidance warning symptoms reviewed with the patient. Verbalizes understanding and agrees with plan of care. - Differential Dx/Diagnosis Differential Diagnosis/HQI/PQRI: Bronchitis, Influenza, Pneumonia, Upper Respiratory Infection Provider Diagnosis: Influenza A Discharge ED - Sign-Out/Discharge Documenting (check all that apply): Patient Departure All imaging exams completed and their final reports reviewed: No Studies - Discharge Plan Condition: Stable Disposition: HOME Prescriptions: Benzonatate CAP* [Tessalon 100 MG CAP*] 100 mg PO TID PRN #21 cap PRN Reason: Cough Oseltamivir CAP* [Tamiflu CAP*] 75 mg PO BID #10 cap Patient Education Materials: Influenza (ED) Forms: *Work Release Referrals: Patrizia Cazares MD [Primary Care Provider] - 5 Days Additional Instructions: Your flu test in the clinic today was positive for influenza A. Start Tamiflu 1 capsule twice a day for 5 days. Get plenty of rest. Drink plenty of fluids to avoid dehydration especially if you are running any fever. Take over the counter acetaminophen (Tylenol) or ibuprofen (Advil, Motrin) according to directions as needed for pain or fever. Take Tessalon Perles 1 cap every 8 hours as needed for cough. Use salt water gargles several times a day if you have a sore throat. You may also use Chloraseptic spray or Cepacol lonzenges according to directions which contain a numbing medication and can provide some temporary relief from your sore throat. Follow up with your primary care provider in 5-7 days if symptoms persist. Seek immediate medical attention in the emergency room if you have fever greater than 100.5 F despite taking acetaminophen or ibuprofen, have chest pain , difficulty breathing, are unable to swallow, or have any worsening of symptoms. - Billing Disposition and Condition Condition: STABLE Disposition: Home - Attestation Statements Provider Attestation: I was available for consult. This patient was seen by the RABIA. The patient was not presented to, seen by, or examined by me. -Shasha
== END 2019-03-30 17:55 | disposition home or self-care (01) ==
LOC: UCEAST 16:19
DX: J10.1 Influenza due to other identified influenza virus with other respiratory manifestations (principal); E11.9 Type 2 diabetes mellitus without complications; I10 Essential (primary) hypertension; F17.210 Nicotine dependence, cigarettes, uncomplicated
CPT/HCPCS: 99212; A9270-GY; G0463

== ENCOUNTER 2019-04-19 11:16 | Emergency (ER) | payer OTHER ==
[2019-04-19 12:18] VITALS: BP 159/103
--- NOTE | 2019-04-19 12:43 | UC ---
Skin Complaint HPI - HPI Summary HPI Summary: 38 year old male with no PMH, no prior h/o MRSA presents with multiple wounds over extremities x week. Worst at left wrist, was blister appearing, but popped this AM with purulent drainage, brown/ yellow. no fever, chills, no difficulty with movement. no h/o MRSA in past. - History of Current Complaint Chief Complaint: UCSkin Time Seen by Provider: 04/19/19 12:35 Stated Complaint: SKIN COMPLAINT Hx Obtained From: Patient Onset/Duration: Sudden Onset, Lasting Days Skin Exposure Onset/Duration: Days Ago Onset Severity: Moderate Current Severity: Moderate Pain Intensity: 8 Pain Scale Used: 0-10 Numeric Location: Discrete - left wrist Character: Swelling, Redness, Raised Aggravating Factor(s): Touch Associated Signs & Symptoms: Positive: Drainage, Tenderness, Red Streaks. Negative: Nausea, Weakness, Fever, Chills - Allergy/Home Medications Allergies/Adverse Reactions: Allergies Allergy/AdvReac Type Severity Reaction Status Date / Time No Known Allergies Allergy Verified 04/19/19 12:18 Home Medications: Home Medications amLODIPine TAB* [Norvasc 5 mg TAB*] 10 mg PO QAM 03/04/12 [History Confirmed 04/08] Bupropion XL* [Wellbutrin XL *] 150 mg PO DAILY 06/09/18 [History Confirmed 04/08] Lisinopril/HCTZ 11/28.5(NF) [Zestoretic 11/28.5(NF)] 1 tab PO DAILY 12/12/18 [ History Confirmed 04/19/19] Metformin HCl 500 mg PO BID 12/12/18 [History Confirmed 04/19/19] Naproxen [Naproxen 500 mg tab] 500 mg PO BID PRN 12/12/18 [History Confirmed 04/08] Esomeprazole Magnesium [Nexium 24Hr] 20 mg PO DAILY 04/19/19 [History Confirmed 04/19/19] clindamycin HCL [Clindamycin HCl] 300 mg PO Q6H #28 capsule 04/19/19 [Rx] PMH/Surg Hx/FS Hx/Imm Hx Previously Healthy: Yes Other History Of: Negative For: HIV, Hepatitis B, Hepatitis C - Surgical History Surgical History: Yes Surgery Procedure, Year, and Place: RTC REPAIR RT SHOULDER 04/27/18 - Family History Known Family History: Positive: Cardiac Disease, Hypertension, Diabetes, Respiratory Disease - COPD, Other - CVA - Social History Occupation: Employed Full-time Alcohol Use: Occasionally Alcohol Amount: 1-2 DRINKS/MONTH Substance Use Type: None Smoking Status (MU): Light Every Day Tobacco Smoker Type: Cigarettes Amount Used/How Often: 1/2 PACK EVERY COUPLE DAYS CURRENTLY, PAST YEARS 1 PPD Length of Time of Smoking/Using Tobacco: 20 YRS Have You Smoked in the Last Year: Yes When Did the Patient Quit Smoking/Using Tobacco: trying to quit Household Exposure Type: Cigarettes - Immunization History Most Recent Influenza Vaccination: Most Recent Tetanus Shot: unknown Review of Systems All Other Systems Reviewed And Are Negative: Yes Constitutional: Negative: Fever, Chills, Fatigue Skin: Positive: Rash, Other - drainage ENT: Positive: Negative Respiratory: Positive: Negative Neurovascular: Positive: Negative Musculoskeletal: Positive: Negative Neurological/Mental Status: Positive: Negative Psychological: Positive: Negative Is Patient Immunocompromised?: No Physical Exam Triage Information Reviewed: Yes Appearance: Well-Appearing, No Pain Distress, Well-Nourished Vital Signs: Initial Vital Signs Temp 99.2 F 04/19/19 12:14 Pulse 91 04/19/19 12:14 Resp 16 04/19/19 12:14 BP 159/103 04/19/19 12:14 Pulse Ox 100 04/19/19 12:14 Vital Signs Reviewed: Yes Eyes: Positive: Conjunctiva Clear ENT: Positive: Hearing grossly normal Musculoskeletal: Positive: Strength Intact, ROM Intact - L hand, wrist, Edema @ - mild around volar aspect of left wrist Neurological: Positive: Alert, Muscle Tone Normal, Other: - SITLT distal to left wrist Psychological: Positive: Normal Response To Family Skin: Positive: Other - right thigh, right groin, left thigh- small healed scar over slightly erythematous base,m 2mm. left wrist- open wound with purulent driange expressed, ~ 5mm indiameter, moderate erythematous base. full ROM of wrist, thumb, fingers without difficulty. Course/Dx - Course Course Of Treatment: - ANtibiotics as prescribed for 7 days, four times a day - Keep left wrist covered. Warm water soaks 2-3 times a day to help with drainage, cover afterwards - Return in 2 days if no improvement. Go to ER with worsening symtpoms, spreading, difficulty moving wrist, fingers, fever/ chills. - monitor other areas for improvement - Drainage sent for cultures- will confirm what type of antibiotics/ bacteria is seen. MRSA suspected but not confirmed currently. - Differential Diagnoses - Skin Complaint Differential Diagnoses: Cellulitis, Urticaria - Diagnoses Provider Diagnosis: Cellulitis Discharge ED - Sign-Out/Discharge Documenting (check all that apply): Patient Departure All imaging exams completed and their final reports reviewed: No Studies - Discharge Plan Condition: Good Disposition: HOME Prescriptions: clindamycin HCL [Clindamycin HCl] 300 mg PO Q6H #28 capsule Patient Education Materials: MRSA (Methicillin-Resistant Staphylococcus Aureus ) (ED), Cellulitis (ED) Referrals: Patrizia Cazares MD [Primary Care Provider] - Additional Instructions: - ANtibiotics as prescribed for 7 days, four times a day - Keep left wrist covered. Warm water soaks 2-3 times a day to help with drainage, cover afterwards - Return in 2 days if no improvement. Go to ER with worsening symtpoms, spreading, difficulty moving wrist, fingers, fever/ chills. - monitor other areas for improvement - Drainage sent for cultures- will confirm what type of antibiotics/ bacteria is seen. MRSA suspected but not confirmed currently. - Billing Disposition and Condition Condition: GOOD Disposition: Home
--- NOTE | 2019-04-21 12:17 | UC ---
- Progress Note Progress Note: CALLED PATIENT. NAME AND DATE OF VERIFIED. ADVISED THAT CULTURE POSITIVE FOR MRSA THAT IS SENSITIVE TO CLINDAMYCIN. ADVISED TO CONTINUE THE ANTIBIOTICS PRESCRIBED AND FOLLOW-UP WITH DR. ARIEL COLUNGA OF INFECTIOUS DISEASES. PHONE NUMBER PROVIDED. INSTRUCTED TO GO TO THE EMERGENCY ROOM WITHOUT FAIL IF HIS SYMPTOMS WORSEN OR DO NOT IMPROVE. Course/Dx - Diagnoses Provider Diagnoses: Cellulitis Discharge ED - Sign-Out/Discharge Documenting (check all that apply): Post-Discharge Follow Up All imaging exams completed and their final reports reviewed: No Studies - Discharge Plan Condition: Good Disposition: HOME Prescriptions: clindamycin HCL [Clindamycin HCl] 300 mg PO Q6H #28 capsule Patient Education Materials: MRSA (Methicillin-Resistant Staphylococcus Aureus ) (ED), Cellulitis (ED) Referrals: Patrizia Cazares MD [Primary Care Provider] - Additional Instructions: - ANtibiotics as prescribed for 7 days, four times a day - Keep left wrist covered. Warm water soaks 2-3 times a day to help with drainage, cover afterwards - Return in 2 days if no improvement. Go to ER with worsening symtpoms, spreading, difficulty moving wrist, fingers, fever/ chills. - monitor other areas for improvement - Drainage sent for cultures- will confirm what type of antibiotics/ bacteria is seen. MRSA suspected but not confirmed currently. - Billing Disposition and Condition Condition: GOOD Disposition: Home
== END 2019-04-19 13:06 | disposition home or self-care (01) ==
LOC: UCEAST 11:16
DX: L03.114 Cellulitis of left upper limb (principal); F17.210 Nicotine dependence, cigarettes, uncomplicated
CPT/HCPCS: 87070; 87077; 87186; 87205; 87640; 87641; 99212; G0463